=== PATIENT | female | born 1930 | race Caucasian/White ===

== ENCOUNTER 2017-03-31 11:41 | Emergency (ER) | payer MEDICARE ==
[~2017-03-31] VITALS: Ht 167.6 cm; Wt 68.0 kg
[~2017-03-31 11:41] MED LIST: ACET325T12 PO; ALPR0.254 PO; ASPI1CPM PO; Bupropion Hcl PO; DOCU-24 PO; DONE5TAB31 PO; ESCI10TA PO; HALO5TAB PO; HYDR25TA PO; LEVO50TA6 PO; LISI-414 PO; MINE25OI TP
--- NOTE | 2017-03-31 11:41 | NUR ---
ARRIVAL PT ARRIVED VIA EMS. REPORT RECEIVED FROM EMS. PT ALERT ORIENTED TO PERSON, PLACE, DISORIENTED TO TIME. CONFUSED ON CONDITION FOR BEING IN ER AND MEDICAL CONDITIONS. ANSWERS QUESTIONS APPROPRIATELY AND PLEASANTLY. TRIAGE DONE.
--- NOTE | 2017-03-31 12:03 | NUR ---
DAUGHTER DAUGHTER CALLED TO CHECK ON STATUS OF PT, ASKED PT FOR HER PERMISSION TO GIVE DAUGHTER INFO AND PT STATED YES I COULD GIVE HER INFORMATION. SPOKE TO DAUGHTER WHO STATED SHE HAS ALZHEIMERS AND GET CONFUSED EASILY, DAUGHTER STATES THAT THE [facility] STAFF STATED TO HER THAT SHE TOLD THEM THAT SHE COULD NOT STAND UP OR RAISE HER ARMS SO THEY CALLED EMS. REPORTED TO DOCTOR.
--- NOTE | 2017-03-31 12:07 | NUR ---
STATUS PT IS ABLE TO LIFT BOTH ARMS ABOVE HEAD.
--- NOTE | 2017-03-31 12:29 | ER.PDOC ---
General Chief Complaint: General Complaint Stated Complaint: WEAKNESS TRAVEL OUT OF US: No Time seen by MD: 12:27 Source: patient, EMS Exam Limitations: clinical condition History of Present Illness Timing/Duration: 4-6 hours Severity: moderate Associated Symptoms: weakness Allergies: Coded Allergies: Sulfa (Sulfonamide Antibiotics) (Verified Allergy, Unknown, 04/10/16) Uncoded Allergies: HEPRIN (Allergy, Unknown, UNKNOWN, 07/22/15) Home Meds Active Scripts Hydroxyzine Hcl (HYDROXYZINE HCL) 25 Mg Tablet, 25 MG PO Q6HR Y for ITCHING for 30 Days, TABLET Prov:IDALIA GRIDER IV, MD 04/19/16 [Bupropion Hcl] 150 MG TAB.ER.24H No Conflict Check, 150 MG PO DAILY for 30 Days Prov:IDALIA GRIDER IV, MD 04/19/16 Alprazolam (ALPRAZOLAM) 0.25 Mg Tablet, 0.25 MG PO BID Y for ANXIETY for 30 Days , TABLET Prov:IDALIA GRIDER IV, MD 04/19/16 Docusate Sodium (COLACE) 100 Mg Capsule, 100 MG PO BID Y for constipation for 30 Days, CAPSULE Prov:IDALIA GRIDER IV, MD 04/14/16 Haloperidol (HALOPERIDOL) 5 Mg Tablet, 1 MG PO Q4HR Y for AGITATION for 30 Days , TABLET Prov:IDALIA GRIDER IV, MD 04/14/16 Acetaminophen (TYLENOL) 325 Mg Tablet, 650 MG PO PRN Y for HEADACHE for 30 Days , TABLET Prov:IDALIA GRIDER IV, MD 04/14/16 Lisinopril (LISINOPRIL) 5 Mg Tablet, 5 MG PO DAILY for 30 Days, TABLET Prov:IDALIA GRIDER IV, MD 04/14/16 Donepezil Hcl (ARICEPT) 5 Mg Tablet, 5 MG PO HS for 30 Days, TABLET Prov:IDALIA GRIDER IV, MD 04/14/16 Reported Medications Mineral Oil (MINERAL OIL) 25 Ml Oil, 1 TSP TP HS 04/10/16 Escitalopram Oxalate (ESCITALOPRAM OXALATE) 10 Mg Tablet, 10 MG PO DAILY, TABLET 04/10/16 Aspirin/Dipyridamole (AGGRENOX 25 MG-200 MG CAPSULE) 1 Each Cpmp.12hr, 1 EACH PO BID 04/10/16 Levothyroxine Sodium (LEVOTHYROXINE SODIUM) 50 Mcg Tablet, 50 MCG PO DAILY, TABLET 04/10/16 Past Medical History Medical History: hypertension Surgical History: tubal LMP (females 10-50): postmenopause Social History Smoking: non-smoker Alcohol Use: none Drug Use: none Reviewed Nursing Reviewed: Vital Signs, Abn. Noted, Nursing Assessment Review of Systems Psychiatric/Neurological: see HPI, weakness All Other Systems: Reviewed and Negative Physical Exam General Appearance: Moderate Distress EENT: eyes nml inspection Neck: Non-Tender Respiratory: chest non-tender CVS: reg rate & rhythm Gastrointestinal: Normal Bowel Sounds Rectal: Deferred Back: Normal Inspection Extremities: Normal Range of Motion Neurologic/Psychiatric: Motor Weakness, Depressed Affect Skin: Normal Color Lymphatic: No Adenopathy Results/Orders Results/Orders Laboratory Tests Test 03/31/17 12:32 White Blood Count 7.4 10^3/uL (4.5-11.0) Red Blood Count 4.17 10^6/uL (4.00-5.20) Hemoglobin 11.9 g/dL (12.0-15.0) Hematocrit 36.9 % (36.0-46.0) Mean Corpuscular Volume 88.5 fL (78-100) Mean Corpuscular Hemoglobin 28.5 pg (26-34) Mean Corpuscular Hemoglobin Concent 32.2 g/dL (33-37) Red Cell Distribution Width 14.0 % (11.5-14.5) Platelet Count 305 10^3/uL (150-400) Mean Platelet Volume 10.5 fL (7.8-11.0) Neutrophils (%) (Auto) 59.0 % (41.0-85.0) Lymphocytes (%) (Auto) 20.1 % (24.0-44.0) Monocytes (%) (Auto) 10.0 % (5.0-12.0) Neutrophils # (Auto) 4.4 10^3/uL (1.8-7.7) Lymphocytes # (Auto) 1.5 10^3/uL (1.0-4.8) Monocytes # (Auto) 0.7 10^3/uL (0.3-0.8) Absolute Immature Granulocyte (auto 0.01 10^3 u/L (0-2) Eosinophils % 9.6 % (0.0-5.0) Basophils % 1.2 % (0.0-0.2) Basophils # 0.1 10^3/uL (0.0-0.1) Eosinophil Count 0.7 10^3/uL (0.0-0.2) Prothrombin Time 10.4 SEC (9.8-11.9) Prothrombin Time INR (Non-Therap) 1.0 D-Dimer 0.66 mg/L (0.19-0.41) Sodium Level 136 mmol/L (132-145) Potassium Level 4.3 mmol/L (3.6-5.2) Chloride Level 103.0 mmol/L (96-109) Carbon Dioxide Level 23.5 mmol/L (20.0-32) Anion Gap 13.8 Blood Urea Nitrogen 15 mg/dL (7-18) Creatinine 1.14 mg/dL (0.59-1.40) Estimated GFR () 54.4 (>/=60) BUN/Creatinine Ratio 13.0 Glucose Level 105 mg/dL (70-110) Calcium Level 9.1 mg/dL (8.4-10.5) Total Bilirubin 0.4 mg/dL (0.2-1.0) Aspartate Amino Transf (AST/SGOT) 16 U/L (0-35) Alanine Aminotransferase (ALT/SGPT) 14 U/L (12-78) Alkaline Phosphatase 65 U/L (50-136) Total Creatine Kinase 40 U/L (26-192) Creatine Kinase MB 0.5 ng/mL (0.5-3.6) Troponin I < 0.02 ng/mL (0.00-0.05) Pro-B-Type Natriuretic Peptide 119 pg/mL (0-450) Total Protein 7.1 g/dL (6.4-8.2) Albumin 3.2 g/dL (3.4-5.0) Globulin 3.9 Percent Immature Gran (Cell Imm) 0.10 % (0.00-0.50) Progress Progress Patient resting comfortably. She is mildly bradycardic and has fatigue. She will be discharged and return to the [facility]. CXR and Head CT Scan are negative for any acute findings. EKG/XRAY/CT/US EKG Comments: Sinus Bradycardia, HR 53, 1st degree AV Block. XRAY: chest XRAY Comments: Negative CT Comments: Head: Negative Departure Time of Disposition: 13:42 Disposition: 01 HOME, SELF-CARE Impression: Primary Impression: Fatigue Qualified Codes: R53.82 - Chronic fatigue, unspecified Additional Impression: Bradycardia Condition: Stable Referrals: SHERMAN KEMP MD (PCP) PRIMARY CARE PROVIDER MIKEY OSORIO MD Mar 31, 2017 12:29
[2017-03-31 12:48] LABS: BASOPHIL # 0.1 10^3/uL (0.0-0.1); BASOPHIL % 1.2 % (0.0-0.2); EOSINOPHIL # 0.7 10^3/uL (0.0-0.2); EOSINOPHIL % 9.6 % (0.0-5.0); HEMOGLOBIN 11.9 g/dL (12.0-15.0); LYMPHOCYTES # 1.5 10^3/uL (1.0-4.8); LYMPHOCYTES % 20.1 % (24.0-44.0); MEAN CELL HGB 28.5 pg (26-34); MEAN CELL HGB CONCENTRATION 32.2 g/dL (33-37); MEAN CORP VOLUME 88.5 fL (78-100); MEAN PLATELET VOLUME 10.5 fL (7.8-11.0); MONOCYTES # 0.7 10^3/uL (0.3-0.8); NEUTROPHIL # 4.4 10^3/uL (1.8-7.7); WHITE BLOOD CELL 7.4 10^3/uL (4.5-11.0)
[2017-03-31 13:11] LABS: ALANINE AMINOTRANSFERASE 14 U/L (12-78); ALKALINE PHOSPHATASE 65 U/L (50-136); ASPARTATE AMINO TRANSFERASE 16 U/L (0-35); CALCIUM 9.1 mg/dL (8.4-10.5); CARBON DIOXIDE 23.5 mmol/L (20.0-32); GLUCOSE 105 mg/dL (70-110)
--- NOTE | 2017-03-31 13:25 | DIREP ---
PROCEDURE:CT HEAD OR BRAIN W/O CONTRAST COMPARISON:[facility] [place], CT, CT HEAD BRAIN W/O CONTRAST, 04/11/2016, 01:05 PM. INDICATIONS:stroke/weakness TECHNIQUE:CT images were created without intravenous contrast. FINDINGS: VENTRICLES:The ventricles are normal in size and configuration. CEREBRUM:Encephalomalacia related to previous left frontoparietal ischemic injury unchanged. CEREBELLUM:Negative. BRAINSTEM:Negative. BASAL CISTERNS:Sampson cisterna magna which is a normal variant.. HEMORRHAGE:No MASS LESION:No ACUTE INFARCT:No SKULL:Normal. SINUSES:Normal. OTHER:Vertebrobasilar and carotid siphon calcifications. CONCLUSION: 1. No acute intracranial abnormality. 2. Remote ischemic injury left frontal and to a lesser extent parietal lobes with encephalomalacia unchanged. 3. Extensive vertebrobasilar and carotid atherosclerotic calcifications. Dictated by: Augusto Hermosillo M.D. on 03/31/2017 at 01:21 PM
--- NOTE | 2017-03-31 13:26 | DIREP ---
PROCEDURE:CHEST 1 VIEW COMPARISON:[facility], CR, XRAY CHEST SINGLE VW, 07/30/2016, 05:52 PM. INDICATIONS:syncope/weakness FINDINGS: LUNGS/PLEURA:No significant pulmonary parenchymal abnormalities. No effusions. VASCULATURE:Normal. Unremarkable pulmonary vasculature. CARDIAC:Normal. No cardiac silhouette abnormality or cardiomegaly. MEDIASTINUM:Normal. No visible mass or adenopathy. BONES:Normal. No fracture or visible bony lesion. OTHER:EKG leads overlie the chest. CONCLUSION:No active cardiopulmonary process demonstrated. Dictated by: Augusto Hermosillo M.D. on 03/31/2017 at 01:24 PM
[2017-03-31 14:31] VITALS: BP 151/60
== END 2017-03-31 14:05 | disposition home or self-care (01) ==
LOC: EDBD 11:41 → ER 11:41
DX: R53.1 Weakness (principal); R00.1 Bradycardia, unspecified; I10 Essential (primary) hypertension; Z79.82 Long term (current) use of aspirin; F32.9 Major depressive disorder, single episode, unspecified
CPT/HCPCS: 36415; 70450; 71010; 80053; 82550; 82553; 83880; 84484; 85025; 85379; 85610; 93005; 99285

== ENCOUNTER 2017-06-18 06:15 | Inpatient (IN) | payer MEDICARE ==
[~2017-06-18] VITALS: Ht 160 cm; Wt 53.2 kg
[~2017-06-18 06:15] MED LIST changes: +DOCU-123 PO; -DOCU-24 PO; -DONE5TAB31 PO; +DONE5TAB53 PO
--- NOTE | 2017-06-18 06:26 | ER.PDOC ---
BEATRIZ JIMENEZ MD 06/18/17 0626: General Chief Complaint: Requesting Medical Care Stated Complaint: FALL HEAD INJURY Time seen by MD: 06:15 Source: EMS Exam Limitations: other (dementia) History of Present Illness Initial Comments pt reportedly fell and injured her head. unreliable H and P and ROS due to dementia Occurred: this morning, other (at [facility] [place]) Allergies: Coded Allergies: Sulfa (Sulfonamide Antibiotics) (Verified Allergy, Unknown, 04/10/16) Uncoded Allergies: HEPRIN (Allergy, Unknown, UNKNOWN, 07/22/15) MEDS Active Scripts Hydroxyzine Hcl (HYDROXYZINE HCL) 25 Mg Tablet, 25 MG PO Q6HR Y for ITCHING for 30 Days, TABLET Prov:IDALIA GRIDER IV, MD 04/19/16 [Bupropion Hcl] 150 MG TAB.ER.24H No Conflict Check, 150 MG PO DAILY for 30 Days Prov:IDALIA GRIDER IV, MD 04/19/16 Alprazolam (ALPRAZOLAM) 0.25 Mg Tablet, 0.25 MG PO BID Y for ANXIETY for 30 Days , TABLET Prov:IADLIA GRIDER IV, MD 04/19/16 Docusate Sodium (COLACE) 100 Mg Capsule, 100 MG PO BID Y for constipation for 30 Days, CAPSULE Prov:IDALIA GRIDER IV, MD 04/14/16 Haloperidol (HALOPERIDOL) 5 Mg Tablet, 1 MG PO Q4HR Y for AGITATION for 30 Days , TABLET Prov:IDALIA GRIDER IV, MD 04/14/16 Acetaminophen (TYLENOL) 325 Mg Tablet, 650 MG PO PRN Y for HEADACHE for 30 Days , TABLET Prov:IDALIA GRIDER IV, MD 04/14/16 Lisinopril (LISINOPRIL) 5 Mg Tablet, 5 MG PO DAILY for 30 Days, TABLET Prov:IDALIA GRIDER IV, MD 04/14/16 Donepezil Hcl (ARICEPT) 5 Mg Tablet, 5 MG PO HS for 30 Days, TABLET Prov:IDALIA GRIDER IV, MD 04/14/16 Reported Medications Mineral Oil (MINERAL OIL) 25 Ml Oil, 1 TSP TP HS 04/10/16 Escitalopram Oxalate (ESCITALOPRAM OXALATE) 10 Mg Tablet, 10 MG PO DAILY, TABLET 04/10/16 Aspirin/Dipyridamole (AGGRENOX 25 MG-200 MG CAPSULE) 1 Each Cpmp.12hr, 1 EACH PO BID 04/10/16 Levothyroxine Sodium (LEVOTHYROXINE SODIUM) 50 Mcg Tablet, 50 MCG PO DAILY, TABLET 04/10/16 Past Medical History Medical History: hypertension, other (dementia) Surgical History: tubal Family History Significant Family History: no pertinent family hx Social History Drug Use: none Review of Systems Constitutional: other (unreliable) Physical Exam General Appearance: No Apparent Distress, WD/WN, C-collar Head: Ecchymosis Eyes: bilateral eye normal inspection, bilateral eye PERRL, bilateral eye EOMI Ears, Nose, Mouth, Throat: Hearing Grossly Normal, No Evidence of ENT Injury, No Dental Injury Neck: Normal Alignment 1 - ecchymosis Cardiovascular/Respiratory: Regular Rate, Rhythm Gastrointestinal: Normal Bowel Sounds Back: Normal Inspection Extremities: Normal Range of Motion, Non-Tender, No Pedal Edema, Other (no deformity) Skin: Other (ecchymosis) Haider Coma Score Best Eye Response: (4) Open Spontaneously Best Verbal Response: (4) Confused Conversation Best Motor Response: (6) Obeys Commands Results/Orders Results/Orders Laboratory Tests Test 06/18/17 06:35 06/18/17 06:48 White Blood Count 13.1 10^3/uL (4.5-11.0) Red Blood Count 3.97 10^6/uL (4.00-5.20) Hemoglobin 10.9 g/dL (12.0-15.0) Hematocrit 35.0 % (36.0-46.0) Mean Corpuscular Volume 88.2 fL (78-100) Mean Corpuscular Hemoglobin 27.5 pg (26-34) Mean Corpuscular Hemoglobin Concent 31.1 g/dL (33-37) Red Cell Distribution Width 13.9 % (11.5-14.5) Platelet Count 296 10^3/uL (150-400) Mean Platelet Volume 10.3 fL (7.8-11.0) Neutrophils (%) (Auto) 81.8 % (41.0-85.0) Lymphocytes (%) (Auto) 7.8 % (24.0-44.0) Monocytes (%) (Auto) 7.4 % (5.0-12.0) Neutrophils # (Auto) 10.8 10^3/uL (1.8-7.7) Lymphocytes # (Auto) 1.0 10^3/uL (1.0-4.8) Monocytes # (Auto) 1.0 10^3/uL (0.3-0.8) Absolute Immature Granulocyte (auto 0.03 10^3 u/L (0-2) Eosinophils % 2.6 % (0.0-5.0) Basophils % 0.2 % (0.0-0.2) Basophils # 0.0 10^3/uL (0.0-0.1) Eosinophil Count 0.3 10^3/uL (0.0-0.2) Sodium Level 136 mmol/L (132-145) Potassium Level 4.4 mmol/L (3.6-5.2) Chloride Level 103.0 mmol/L (96-109) Carbon Dioxide Level 24.2 mmol/L (20.0-32) Anion Gap 13.2 Blood Urea Nitrogen 18 mg/dL (7-18) Creatinine 1.20 mg/dL (0.59-1.40) Estimated GFR () 51.2 (>/=60) BUN/Creatinine Ratio 15.0 Glucose Level 123 mg/dL (70-110) Calcium Level 8.8 mg/dL (8.4-10.5) Total Bilirubin 0.4 mg/dL (0.2-1.0) Aspartate Amino Transf (AST/SGOT) 18 U/L (0-35) Alanine Aminotransferase (ALT/SGPT) 15 U/L (12-78) Alkaline Phosphatase 61 U/L (50-136) Total Protein 6.9 g/dL (6.4-8.2) Albumin 3.2 g/dL (3.4-5.0) Globulin 3.7 Percent Immature Gran (Cell Imm) 0.20 % (0.00-0.50) Urine Collection Type CATH Urine Color YELLOW (YELLOW) Urine Appearance CLOUDY (CLEAR) Urine Bilirubin NEGATIVE MG/DL (NEGATIVE) Urine Ketones NEGATIVE (NEGATIVE) Urine Specific [place] 1.020 (1.005-1.035) Urine pH 6 (5.0-6.0) Urine Protein NEGATIVE (NEGATIVE) Urine Urobilinogen NORMAL (NEGATIVE) Urine Nitrate POSITIVE (NEGATIVE) Urine Leukocyte Esterase 500/uL 2+ (NEGATIVE) Urine Blood 50 2+ (NEGATIVE) Urine RBC NONE SEEN RBC/HPF (NONE Urine WBC TNTC WBC/HPF (0-2) Urine Squamous Epithelial Cells RARE #/HPF (FEW) Urine Bacteria FEW (NONE SEEN) Urine Other 2+ MUCUS #/HPF Urine Glucose NORMAL (NEGATIVE) Progress Progress checked out pt to Dr. Lagunas at 0700 Departure Disposition: 09 ADMITTED INPATIENT Impression: Primary Impression: Altered mental status Qualified Codes: R41.82 - Altered mental status, unspecified Additional Impressions: UTI (urinary tract infection) Qualified Codes: N39.0 - Urinary tract infection, site not specified; R31.9 - Hematuria, unspecified Head injury, acute Qualified Codes: S09.90XA - Unspecified injury of head, initial encounter Fall Qualified Codes: W19.XXXA - Unspecified fall, initial encounter Condition: Stable Referrals: SHERMAN KEMP MD (PCP) PRIMARY CARE PROVIDER LEXI LAGUNAS MD 06/18/17 0904: General Chief Complaint: Requesting Medical Care Stated Complaint: FALL HEAD INJURY History of Present Illness Allergies: Coded Allergies: Sulfa (Sulfonamide Antibiotics) (Verified Allergy, Unknown, 04/10/16) Uncoded Allergies: HEPRIN (Allergy, Unknown, UNKNOWN, 07/22/15) MEDS Active Scripts Hydroxyzine Hcl (HYDROXYZINE HCL) 25 Mg Tablet, 25 MG PO Q6HR Y for ITCHING for 30 Days, TABLET Prov:IDALIA GRIDER IV, MD 04/19/16 [Bupropion Hcl] 150 MG TAB.ER.24H No Conflict Check, 150 MG PO DAILY for 30 Days Prov:IDALIA GRIDER IV, MD 04/19/16 Alprazolam (ALPRAZOLAM) 0.25 Mg Tablet, 0.25 MG PO BID Y for ANXIETY for 30 Days , TABLET Prov:IDALIA GRIDER IV, MD 04/19/16 Docusate Sodium (COLACE) 100 Mg Capsule, 100 MG PO BID Y for constipation for 30 Days, CAPSULE Prov:IDALIA GRIDER IV, MD 04/14/16 Haloperidol (HALOPERIDOL) 5 Mg Tablet, 1 MG PO Q4HR Y for AGITATION for 30 Days , TABLET Prov:IDALIA GRIDER IV, MD 04/14/16 Acetaminophen (TYLENOL) 325 Mg Tablet, 650 MG PO PRN Y for HEADACHE for 30 Days , TABLET Prov:IDALIA RGIDER IV, MD 04/14/16 Lisinopril (LISINOPRIL) 5 Mg Tablet, 5 MG PO DAILY for 30 Days, TABLET Prov:IDALIA GRIDER IV, MD 04/14/16 Donepezil Hcl (ARICEPT) 5 Mg Tablet, 5 MG PO HS for 30 Days, TABLET Prov:IDALIA GRIDER IV, MD 04/14/16 Reported Medications Mineral Oil (MINERAL OIL) 25 Ml Oil, 1 TSP TP HS 04/10/16 Escitalopram Oxalate (ESCITALOPRAM OXALATE) 10 Mg Tablet, 10 MG PO DAILY, TABLET 04/10/16 Aspirin/Dipyridamole (AGGRENOX 25 MG-200 MG CAPSULE) 1 Each Cpmp.12hr, 1 EACH PO BID 04/10/16 Levothyroxine Sodium (LEVOTHYROXINE SODIUM) 50 Mcg Tablet, 50 MCG PO DAILY, TABLET 04/10/16 Physical Exam Head: Swelling (Swelling right frontal scalp) Extremities: Tenderness (right shoulder with ecchymosis) Results/Orders Results/Orders Laboratory Tests Test 06/18/17 06:35 06/18/17 06:48 White Blood Count 13.1 10^3/uL (4.5-11.0) Red Blood Count 3.97 10^6/uL (4.00-5.20) Hemoglobin 10.9 g/dL (12.0-15.0) Hematocrit 35.0 % (36.0-46.0) Mean Corpuscular Volume 88.2 fL (78-100) Mean Corpuscular Hemoglobin 27.5 pg (26-34) Mean Corpuscular Hemoglobin Concent 31.1 g/dL (33-37) Red Cell Distribution Width 13.9 % (11.5-14.5) Platelet Count 296 10^3/uL (150-400) Mean Platelet Volume 10.3 fL (7.8-11.0) Neutrophils (%) (Auto) 81.8 % (41.0-85.0) Lymphocytes (%) (Auto) 7.8 % (24.0-44.0) Monocytes (%) (Auto) 7.4 % (5.0-12.0) Neutrophils # (Auto) 10.8 10^3/uL (1.8-7.7) Lymphocytes # (Auto) 1.0 10^3/uL (1.0-4.8) Monocytes # (Auto) 1.0 10^3/uL (0.3-0.8) Absolute Immature Granulocyte (auto 0.03 10^3 u/L (0-2) Eosinophils % 2.6 % (0.0-5.0) Basophils % 0.2 % (0.0-0.2) Basophils # 0.0 10^3/uL (0.0-0.1) Eosinophil Count 0.3 10^3/uL (0.0-0.2) Sodium Level 136 mmol/L (132-145) Potassium Level 4.4 mmol/L (3.6-5.2) Chloride Level 103.0 mmol/L (96-109) Carbon Dioxide Level 24.2 mmol/L (20.0-32) Anion Gap 13.2 Blood Urea Nitrogen 18 mg/dL (7-18) Creatinine 1.20 mg/dL (0.59-1.40) Estimated GFR () 51.2 (>/=60) BUN/Creatinine Ratio 15.0 Glucose Level 123 mg/dL (70-110) Calcium Level 8.8 mg/dL (8.4-10.5) Total Bilirubin 0.4 mg/dL (0.2-1.0) Aspartate Amino Transf (AST/SGOT) 18 U/L (0-35) Alanine Aminotransferase (ALT/SGPT) 15 U/L (12-78) Alkaline Phosphatase 61 U/L (50-136) Total Creatine Kinase 60 U/L (26-192) Creatine Kinase MB 1.0 ng/mL (0.5-3.6) Troponin I < 0.02 ng/mL (0.00-0.05) Pro-B-Type Natriuretic Peptide 355 pg/mL (0-450) Total Protein 6.9 g/dL (6.4-8.2) Albumin 3.2 g/dL (3.4-5.0) Globulin 3.7 Percent Immature Gran (Cell Imm) 0.20 % (0.00-0.50) Urine Collection Type CATH Urine Color YELLOW (YELLOW) Urine Appearance CLOUDY (CLEAR) Urine Bilirubin NEGATIVE MG/DL (NEGATIVE) Urine Ketones NEGATIVE (NEGATIVE) Urine Specific [place] 1.020 (1.005-1.035) Urine pH 6 (5.0-6.0) Urine Protein NEGATIVE (NEGATIVE) Urine Urobilinogen NORMAL (NEGATIVE) Urine Nitrate POSITIVE (NEGATIVE) Urine Leukocyte Esterase 500/uL 2+ (NEGATIVE) Urine Blood 50 2+ (NEGATIVE) Urine RBC NONE SEEN RBC/HPF (NONE Urine WBC TNTC WBC/HPF (0-2) Urine Squamous Epithelial Cells RARE #/HPF (FEW) Urine Bacteria FEW (NONE SEEN) Urine Other 2+ MUCUS #/HPF Urine Glucose NORMAL (NEGATIVE) EKG/XRAY/CT/US XRAY: chest (No active disease) CT Comments: Nothing acute intracranially and on CT C spine Departure Time of Disposition: 09:03 Disposition: 09 ADMITTED INPATIENT Impression: Primary Impression: Altered mental status Qualified Codes: R41.82 - Altered mental status, unspecified Additional Impressions: UTI (urinary tract infection) Qualified Codes: N39.0 - Urinary tract infection, site not specified; R31.9 - Hematuria, unspecified Head injury, acute Qualified Codes: S09.90XA - Unspecified injury of head, initial encounter Fall Qualified Codes: W19.XXXA - Unspecified fall, initial encounter Condition: Stable Referrals: SHERMAN KEMP MD (PCP) PRIMARY CARE PROVIDER Comments Admitted to BEATRIZ Parker MD Jun 18, 2017 06:26 LEXI LAGUNAS MD Jun 18, 2017 09:04
--- NOTE | 2017-06-18 06:30 | NUR ---
REPORT RECEIVED REPORT, ASSUMED CARE OF PT. PT LYING IN BED WITH C-COLLAR IN PLACE, ANSWERING QUESTIONS APPROPRIATLY, EYES CLOSED BUT TALKING AND AWAKE. PT HAS BRUISING AND BUMP TO RIGHT SIDE OF FOREHEAD. DENIES PAIN OR NEEDS @ THIS TIME.
--- NOTE | 2017-06-18 06:34 | PCM.EKG ---
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
[2017-06-18 06:42] LABS: BASOPHIL % 0.2 % (0.0-0.2); EOSINOPHIL # 0.3 10^3/uL (0.0-0.2); EOSINOPHIL % 2.6 % (0.0-5.0); HEMOGLOBIN 10.9 g/dL (12.0-15.0); LYMPHOCYTES % 7.8 % (24.0-44.0); MEAN CELL HGB 27.5 pg (26-34); MEAN CELL HGB CONCENTRATION 31.1 g/dL (33-37); MEAN CORP VOLUME 88.2 fL (78-100); MEAN PLATELET VOLUME 10.3 fL (7.8-11.0); MONOCYTES % 7.4 % (5.0-12.0); NEUTROPHIL # 10.8 10^3/uL (1.8-7.7); NEUTROPHILS % 81.8 % (41.0-85.0); RED CELL DISTRIBUTION WIDTH 13.9 % (11.5-14.5); WHITE BLOOD CELL 13.1 10^3/uL (4.5-11.0)
[2017-06-18 06:50] LABS: BILIRUBIN,URINE NEGATIVE (NEGATIVE); UROBILINOGEN,URINE NORMAL (NEGATIVE)
[2017-06-18 06:59] LABS: APPEARANCE,URINE CLOUDY (CLEAR); UA COLOR YELLOW (YELLOW); WBC,URINE TNTC WBC/HPF (0-2)
[2017-06-18 07:01] LABS: CALCIUM 8.8 mg/dL (8.4-10.5); CARBON DIOXIDE 24.2 mmol/L (20.0-32)
[2017-06-18] MEDS ORDERED: ZOFRAN ONE (07:10)
[2017-06-18] MEDS ORDERED: ZOFRAN ODT ONE (07:23)
--- NOTE | 2017-06-18 07:35 | DIREP ---
PROCEDURE:CT HEAD OR BRAIN W/O CONTRAST COMPARISON:[facility] [place], CT, CT SPINE CERVICAL W/O, 06/18/2017, 07:01 AM. [facility] [place], CT, CT HEAD BRAIN W/O CONTRAST, 03/31/2017, 12:48 PM. INDICATIONS:fall, head injury TECHNIQUE:Axial CT images were obtained from vertex to the skull base without the administration of IV contrast. FINDINGS: VENTRICLES: Commensurate with stable mild cerebral volume loss. No hydrocephalus. CEREBRUM: Stable mild, age-related, volume loss. Stable remote infarctions in the left frontal and parietal lobes. Stable mild chronic small vessel white matter ischemic changes. Stable small remote lacunar infarction in the right caudate body. No intracranial hemorrhage, mass-effect, or midline shift. No CT evidence of acute infarction. CEREBELLUM: Stable mild, age-related, volume loss. Stable small remote lacunar infarction in the right cerebellar hemisphere. Otherwise unremarkable. BRAINSTEM: Normal. BASAL CISTERNS: Normal. SKULL: Normal. No fracture. SINUSES: Stable postoperative changes of prior right maxillary antrostomy and posterior ethmoid air cell resection. Visualized paranasal sinuses and mastoid air cells are clear. OTHER: Mild to moderate soft tissue swelling involving the right frontal scalp and right supraorbital region. Stable calcified plaque in the carotid siphons and vertebral arteries. CONCLUSION: 1. No acute intracranial abnormality. 2. 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 3. Stable mild chronic small vessel white matter ischemic changes with small remote lacunar infarctions in the right caudate body and right cerebellar hemisphere. 4. Valn-ur-keoaarxv soft tissue swelling involving the right frontal scalp and right supraorbital region. Dictated by: Jacky Barragan M.D. On 06/18/2017 at 07:30 AM
--- NOTE | 2017-06-18 07:39 | DIREP ---
PROCEDURE:CT CERVICAL SPINE WITHOUT CONTRAST TECHNIQUE:Axial cuts were obtained through the cervical spine. The images were viewed at bone and soft tissue settings. Sagittal and coronal reconstructions are provided. COMPARISON:[facility], CT, CT HEAD BRAIN W/O CONTRAST, 06/18/2017, 06:52 AM. INDICATIONS:fall, injury FINDINGS: ALIGNMENT: Slight reversal of the normal cervical lordosis, likely secondary to positioning or muscle spasm. No acute subluxation. A cervical collar is in place. VERTEBRAE/DISCS: No fracture or compression abnormality. Luog-eo-yerqdtti disc and facet degenerative changes, most prominent at C5-6 and C6-7. No significant bony central canal stenosis. PARASPINAL AREA: Normal. No prevertebral soft tissue swelling. OTHER: Postoperative changes of left carotid endarterectomy. Dense calcified plaque in the right carotid bulb. Mild biapical pleuroparenchymal scarring. CONCLUSION: 1. No acute abnormality involving the cervical spine. 2. Kaiy-mh-cwpxfsnj disc and facet degenerative changes, most prominent at C5-6 and C6-7. 3. Additional chronic and postoperative findings, as above. Dictated by: Jacky Barragan M.D. On 06/18/2017 at 07:35 AM
[2017-06-18] MEDS ORDERED: LEVAQUIN 100 ML IV STA (07:50)
[2017-06-18] MEDS ORDERED: NS 1000ML 1,000 ML IV STA (07:50)
--- NOTE | 2017-06-18 08:36 | DIREP ---
PROCEDURE:XRAY SHOULDER MIN 2 VWS-RT COMPARISON:None. INDICATIONS:pain from falling FINDINGS: BONES:No acute fracture. JOINTS:Intact glenohumeral and acromioclavicular joints. No evidence for dislocation. No significant degenerative joint disease; however, there does appear to be subtle spurring from the undersurface of the acromion. SOFT TISSUES:No suspicious abnormality. CONCLUSION: 1. No acute osseous abnormality or significant degenerative joint disease. Dictated by: Jacky Del Angel M.D. On 06/18/2017 at 08:33 AM
--- NOTE | 2017-06-18 08:39 | DIREP ---
PROCEDURE:CHEST 1 VIEW COMPARISON:[facility], CR, XRAY CHEST SINGLE VW, 03/31/2017, 12:55 PM. INDICATIONS:AMS FINDINGS: LUNGS/PLEURA:No significant pulmonary parenchymal abnormalities. No effusions. VASCULATURE:Normal. Unremarkable pulmonary vasculature. CARDIAC:Normal. No cardiac silhouette abnormality or cardiomegaly. MEDIASTINUM:Stable mediastinal contours with calcifications of the aorta. BONES:Dextro convex curvature of the thoracic spine with mild degenerative changes. Apparent subacromial spurring bilaterally. OTHER:Surgical clips within the soft tissues of the imaged left neck. CONCLUSION: 1. Stable chest without acute cardiopulmonary abnormality. Dictated by: Jacky Del Angel M.D. On 06/18/2017 at 08:35 AM
--- NOTE | 2017-06-18 08:41 | NUR ---
Dr. Bean Hampton Mba on phone with Dr. Del Angel
[2017-06-18] MEDS ORDERED: LEVAQUIN 100 ML IV ONE (08:43)
[2017-06-18] MEDS ORDERED: NS 1000ML 1,000 ML ONE (08:43)
--- NOTE | 2017-06-18 09:05 | PRM.ACF1 ---
Date and Time Date and Time Time: 09:05 Admission Criteria Forms ACUTE LOSS OF CONSCIOUSNESS- ALOC Clinical Indications for Inpatient Care (Place 'X' for any and all applicable criteria): Ongoing inpatient care may be needed for ANY ONE of the following(1)(2)(3)(5)(6) : [ x]I. Suspected serious etiology (eg, medical disorder, [employer] event) of mental status change [ ]II. Danger to self or others not manageable at lower level of care [ ]III. Grave disability (eg, inability to perform self care necessary at lower level of care) [ ]IV. Agitation or inappropriate behavior interfering with care for primary condition (eg, attempting to discontinue lines or drains prematurely, unable to cooperate with respiratory care) [ ]V. Delirium [A] [D][E] as described by ANY ONE of the following(26): [ ]a) Delirium due to alcohol or sedative [F] withdrawal [ ]b) Delirium of uncertain etiology that has not responded to appropriate empiric treatment [ ]c) Delirium that prevents performance of a life-sustaining function (eg, feeding or hydrating oneself) [ ]. General contraindications and/or Inappropriate clinical situations for Observational Care in patients with Acute Loss of Consciousness, when ANY ONE of the following is required: [ ]a) Prediction of prolongation of LOS based on ANY ONE of the following may be considered as a contraindication for observational care 2, 3, 4, 5, 6, 7, 8 , 9, 10, 11 [ ]i) Age > 65 yrs. [ ]ii) Patient arriving by ambulance [ ]iii) Patient with high acuity [ ]iv) Patient requiring vital sign monitoring [ ]v) Patient on IV medication [ ]b) Systolic blood pressures 180mmHg 3,12 [ ]c) Patient with altered mental status including delirium and other alteration of consciousness, (3) [ ]d) Patient whose discharge disposition will be to a residential home or rehabilitation home should not be managed in Emergency Department Observation Unit. CMS rule requires 3 days hospital stay before such placement.3,13 [ ]e) Patient with failure to thrive due to broad array of etiologies 3,16,17 [ ]f) Inability to ambulate 3,14 Extended stay beyond goal length of stay for the primary condition may be needed until ALL of the following are present(3)(5): [ ]a) Underlying medical etiology of mental status change is absent, or has been established and adequately treated [ ]b) Danger to self or others is absent or manageable at lower level of care. [ ]c) Behavior crisis management, including physical or chemical restraints, is not required or available at lower level of car [ ]d) Substance or alcohol withdrawal is absent or manageable at lower level of care. [ ]e) Behavioral symptoms (eg, agitation, somnolence, inappropriate behavior) are absent, or are manageable at lower level of care. The original [facility] [employer] content created by [facility] [employer] has been revised. The portions of the content which have been revised are identified through the use of italic text or in bold, and [facility] [employer] has neither reviewed nor approved the modified material. All other unmodified content is copyright [facility] [employer]. Please see references footnoted in the original [facility] [employer] edition 2016 LEXI LAGUNAS MD Jun 18, 2017 09:05
[2017-06-18 11:40] VITALS: BP 139/72
[2017-06-18 17:00] VITALS: BP 124/74
--- NOTE | 2017-06-18 17:00 | NUR ---
Dr. Bean Del Angel at bedside
[2017-06-18] MEDS ORDERED: DONE10TA57 PO (17:35)
[2017-06-18] MEDS ORDERED: HALDOL PO PRN (18:00)
[2017-06-18] MEDS ORDERED: LEVAQUIN PO SCH (18:00)
[2017-06-18] MEDS ORDERED: TYLENOL PO PRN (18:00)
[2017-06-18] MEDS ORDERED: ZOFRAN IV PRN (18:00)
[2017-06-18] MEDS ORDERED: XANAX PO PRN (18:00)
[2017-06-18] MEDS ORDERED: MORPHINE SULFATE IV PRN (18:00)
[2017-06-18] MEDS ORDERED: ATARAX PO PRN (18:00)
[2017-06-18] MEDS ORDERED: COLACE PO PRN (18:00)
[2017-06-18 19:00] VITALS: BP 133/60
[2017-06-18] MEDS: AGGRENOX PO SCH (20:48)
[2017-06-18] MEDS: MINERAL OIL PO SCH (21:00)
[2017-06-18] MEDS: ARICEPT PO SCH (21:00)
[2017-06-19 02:15] VITALS: BP 144/58
[2017-06-19] MEDS ORDERED: SYNTHROID ONE (05:18)
[2017-06-19] MEDS: SYNTHROID PO SCH (05:31)
[2017-06-19 05:58] LABS: CALCIUM 8.6 mg/dL (8.4-10.5); CARBON DIOXIDE 25.9 mmol/L (20.0-32)
[2017-06-19 06:07] LABS: BASOPHIL % 0.2 % (0.0-0.2); EOSINOPHIL # 0.6 10^3/uL (0.0-0.2); EOSINOPHIL % 6.7 % (0.0-5.0); HEMOGLOBIN 9.8 g/dL (12.0-15.0); LYMPHOCYTES # 1.6 10^3/uL (1.0-4.8); LYMPHOCYTES % 18.2 % (24.0-44.0); MEAN CELL HGB 28.2 pg (26-34); MEAN CELL HGB CONCENTRATION 31.4 g/dL (33-37); MEAN CORP VOLUME 89.9 fL (78-100); MEAN PLATELET VOLUME 10.9 fL (7.8-11.0); MONOCYTES # 1.1 10^3/uL (0.3-0.8); MONOCYTES % 12.1 % (5.0-12.0); NEUTROPHIL # 5.6 10^3/uL (1.8-7.7); NEUTROPHILS % 62.7 % (41.0-85.0); RED CELL DISTRIBUTION WIDTH 14.1 % (11.5-14.5); WHITE BLOOD CELL 8.9 10^3/uL (4.5-11.0)
[2017-06-19 08:01] VITALS: BP 133/55
[2017-06-19] MEDS: WELLBUTRIN XL PO SCH (08:41)
[2017-06-19] MEDS: AGGRENOX PO SCH ×2 (08:41→20:53)
[2017-06-19] MEDS: CELEXA PO SCH (08:41)
[2017-06-19] MEDS: ZESTRIL PO SCH (08:41)
[2017-06-19] MEDS ORDERED: LEVAQUIN 100 ML IV SCH (09:00)
--- NOTE | 2017-06-19 09:01 | HPH ---
ADMIT DATE: 06/18/2017 The patient was seen upon arrival to the floor. CHIEF COMPLAINT: A fall at the assisted living facility. HISTORY OF PRESENT ILLNESS: The patient is an 87-year-old woman with a past medical history significant for hypertension, advanced dementia, depression, hypothyroidism, who presented to the ER by the EMS after she had a fall at the assisted living facility. She did sustain a bruise and periorbital ecchymosis around her right eye. There was no known loss of consciousness. Trauma workup in the ER was negative for any acute process other than some mild hematoma above the right eye. She denied any chest pain, seizure activity, or syncopal event. She normally is ambulatory and has not had a recent fall. Per her report, she does not drink a lot of water at the group home facility. PAST MEDICAL HISTORY: Includes hypertension, advanced dementia, depression, hypothyroidism, anxiety disorder. PAST SURGICAL HISTORY: She has had a tubal ligation. Other surgeries are not known for sure. SOCIAL HISTORY: She is a resident of a group home facility. No alcohol, tobacco, or illicit drug use history. FAMILY HISTORY: Negative for early coronary artery disease or diabetes. ALLERGIES: HEPARIN AND SULFA. MEDICATIONS: Her current home medication list from the group home facility includes Tylenol as needed, Xanax as needed, Aggrenox 25/200 mg capsule twice a day, Colace as needed, Aricept 10 mg at night, escitalopram 10 mg daily, Haldol as needed, hydroxyzine as needed, levothyroxine 50 mcg daily, lisinopril 5 mg daily, mineral oil 25 mL at night, Wellbutrin XL 150 mg daily. REVIEW OF SYSTEMS: CARDIAC: She denies chest pain or shortness of breath. PULMONARY: No cough, sputum production, or pleuritic chest pain. GASTROINTESTINAL: No nausea, vomiting, diarrhea, or constipation. All else negative in the 10-point Review of Systems, except for as in the HPI. PHYSICAL EXAMINATION: VITAL SIGNS: Vital upon arrival: Height 160 cm, weight 56.7 kilograms, temperature 98.2 degrees Fahrenheit, pulse 64, respiratory rate 16, blood pressure 143/66 mmHg, and O2 saturations 94% on room air. GENERAL: She is alert, a chronically ill-appearing lady. HEENT: Her pupils were equal and reactive. She has some periorbital ecchymosis around her right eye that goes above her right eye. Extraocular muscles are intact. Oropharynx is clear. Mucous membranes are slightly dry. NECK: Supple, no lymphadenopathy. CARDIOVASCULAR: At the time of exam was regular rate and rhythm with a faint systolic murmur heard at the upper sternal border. PULMONARY: The lungs were clear bilaterally, no wheezing. ABDOMEN: Soft. Bowel sounds are present. Nontender to palpation. EXTREMITIES: No cyanosis, clubbing, or significant edema. NEUROLOGIC: Grossly nonfocal. LABORATORY DATA: CBC: White count 13.1, hemoglobin 10.9, platelets 296. DIFFERENTIAL: 82% neutrophils, 8% lymphocytes, 7% monocytes. BMP: Sodium 136, potassium 4.4, chloride 103, CO2 24, BUN 18, creatinine 1.2, glucose 123, calcium 8.8, total bilirubin 0.4, AST 18, ALT 15, alkaline phosphatase 61, total protein 6.9, albumin 3.2. Troponin I is less than 0.02, proBNP 355. Urinalysis: pH 6.0, specific gravity 1.020, positive nitrite, positive leukocyte esterase, too numerous to count WBCs, rare squamous epithelial cells, few bacteria. IMAGING STUDIES: CT-head performed in the Emergency Room did reveal chronic ischemic changes. There is some mild to moderate tissue swelling above the right eye. CT-cervical spine did show some chronic changes with some significant degenerative changes at C5-C6 and C6-C7 with no acute fractures. A shoulder x-ray was performed that showed no acute process. A chest x-ray performed in the Emergency Room showed no acute cardiopulmonary abnormality. ASSESSMENT AND PLAN: The patient is an 87-year-old woman here with dementia with altered mental status and behavioral disturbance secondary to urinary tract infection present on admission, with a [facility] the [facility] with right periorbital ecchymosis, with anemia likely secondary to chronic disease, hypothyroidism. 1. We will continue the current psychiatric medications, we will follow clinically. 2. Infectious Diseases will continue to treat the urinary tract infection with Levaquin started in the Emergency Room. 3. Continue her cardiovascular medications at the current dose. 4. Appropriate p.r.n. pain and nausea medications. 5. Fall precautions. 6. We will follow her anemia. There are no signs of active bleeding. No need for transfusion at this time. 7. DVT prophylaxis will be with SCDs since she did have a fall with a head injury. We will follow closely. Time spent with the patient on June 18, 2017 was 45 minutes. This plan was discussed with the patient and family, and they do understand and concur with the plans. James Del Angel MD DR: ALEXIS/mar JOB# [id number]
--- NOTE | 2017-06-19 09:24 | NUR ---
Dr. Bean Del Angel at bedside. New orders received to DC IV fluid.
--- NOTE | 2017-06-19 09:31 | NUR ---
Status Patient oriented to person only. Patient confused asking where she is and what happened. Oriented patient to surroundings. Patient sitting up in bed eating breakfast. Will continue to monitor. Call light within reach.
[2017-06-19] MEDS: TYLENOL PO PRN (09:35)
[2017-06-19] MEDS: LEVAQUIN PO SCH (09:35)
--- NOTE | 2017-06-19 09:48 | NUR ---
Leo Leo catheter discontinued. 9 cc of fluid removed from balloon. 250 cc of yellow urine drained from catheter. Patient due to void by 1747. Will continue to monitor. Call light within reach. Bed alarm on
--- NOTE | 2017-06-19 12:18 | NUR ---
Bathroom Patient up too bathroom x1 assist.
[2017-06-19 12:35] VITALS: BP 139/66
[2017-06-19] MEDS ORDERED: ZOFRAN ODT ONE (12:42)
[2017-06-19] MEDS: NORCO 5MG PO PRN ×2 (12:47→20:52)
[2017-06-19] MEDS ORDERED: ZOFRAN ODT SL ONE (13:00)
--- NOTE | 2017-06-19 14:33 | NUR ---
Status Patient resting with eyes closed. Respirations even and nonlabored. No s/s of distress noted. Family at bedside. Bed alarm on
[2017-06-19 19:24] VITALS: BP 114/54
--- NOTE | 2017-06-19 19:37 | NUR ---
PT SITTING UP IN BED WATCHING TV WITH FAMILY. DENIES PAIN.
--- NOTE | 2017-06-19 20:15 | NUR ---
pt family stated not to give a laxative or softener tonight pt had a bowel movement earlier this afternoon.
[2017-06-19] MEDS: ARICEPT PO SCH (20:51)
[2017-06-19] MEDS: MINERAL OIL PO SCH ×2 (20:54→21:00)
--- NOTE | 2017-06-19 22:15 | NUR ---
PT BED ALARM OFF PT WONDERING IN ROOM. REEDUCATED ABOUT USING CALL LIGHT. PT LOOKING FOR PURSE FAMILY TOOK HOME WITH THEM. PT ASSISTED BACK TO BED. BED ALARM ON.
[2017-06-20] MEDS: TYLENOL PO PRN (00:16)
--- NOTE | 2017-06-20 00:21 | NUR ---
pt medicated with Xanax 0.25 mg per pt request stated was anxious . pt keeps getting out of bed without calling. bed alarm is on reeducated about call light each time.
[2017-06-20 01:45] VITALS: BP 153/77
[2017-06-20] MEDS: SYNTHROID PO SCH (06:15)
--- NOTE | 2017-06-20 06:44 | NUR ---
REPORT GIVEN TO DAYNA HOWELL
--- NOTE | 2017-06-20 07:05 | NUR ---
Bed alarm Patient's bed alarm going off. Went to room to find patient already in the bathroom. Educated patient on risk for falls, reinforcement needed. Educated patient on use of call light, verbalized understanding but reinforcement needed. Patient confused. Assisted patient back to bed. Bed alarm on. Call light within reach.
--- NOTE | 2017-06-20 07:44 | NUR ---
MOVED PT TO [facility] WITH THE HELP OF TWO NURSES. PT UP IN BED TAKING HIS BREAKFAST.
--- NOTE | 2017-06-20 07:44 | NUR ---
GOT REPORT FROM THE DELI DEPARTMENT MANAGER NURSE.
[2017-06-20 08:35] VITALS: BP 169/71
[2017-06-20] MEDS: LEVAQUIN PO SCH (08:38)
[2017-06-20] MEDS: CELEXA PO SCH (08:38)
[2017-06-20] MEDS: WELLBUTRIN XL PO SCH (08:38)
[2017-06-20] MEDS: AGGRENOX PO SCH (08:38)
[2017-06-20] MEDS: ZESTRIL PO SCH (08:38)
[2017-06-20] MEDS ORDERED: LEVO500T51 PO (08:57)
--- NOTE | 2017-06-20 09:14 | PRM.DC ---
Discharge Summary Date of Discharge: Jun 20, 2017 Reason for Visit: Fall at home, altered mental status Patient History: Alzheimer's disease G8 SISTER G8 SISTER G8 SISTER Cerebrovascular disorder G8 SISTER Chronic obstructive pulmonary disease 33 FATHER 19 CHILD Congestive heart failure 19 CHILD Hypertension 19 CHILD 19 CHILD History Present Illness: (1) Fall SEVERITY: MILD INTERMITTENT Status: Acute ICD Code: W19.XXXA - Unspecified fall, initial encounter SNOMED: 6167833, 729468669 Assessment & Plan: Fall precautions (2) UTI (urinary tract infection) Permanent Comment: Repeat UA normal / negative - COntinue to monitor for clinical evidence of UTI Last Edited By: Tez Huffman MD on Apr 12, 2016 15:47 Status: Resolved ICD Code: N39.0 - Urinary tract infection, site not specified SNOMED: 36607042 Assessment & Plan: Continue oral Levaquin five more days at home Drink plenty of water (3) Altered mental status Status: Acute ICD Code: R41.82 - Altered mental status, unspecified SNOMED: 280152529 Assessment & Plan: Treat UTI as above (4) Dementia SEVERITY: MODERATE PERSISTENT Status: Chronic ICD Code: F03.90 - Unspecified dementia without behavioral disturbance SNOMED: 84821917 Assessment & Plan: Resume current medical management (5) Hypertension Permanent Comment: Patient was initially started on HCTZ, but her SBP dropped from 185-> 104 (large drop) and the patient became tachycardic. Stopped HCTZ. Started her Lisinopril. - Pt no longer tachy (mildly rita) - Continue Lisinopril. Last Edited By: Tez Huffman MD on Apr 15, 2016 19: 05 SEVERITY: MILD PERSISTENT Status: Chronic ICD Code: I10 - Essential (primary) hypertension SNOMED: 87285744 Assessment & Plan: Continue current medical management General: Alert, Oriented X3, Cooperative, No acute distress HEENT: PERRLA, EOMI, Mucous membr. moist/pink Neck: Supple, No JVD Lungs: Clear to auscultation, Normal air movement Heart: Regular rate, Normal S1, Normal S2 Abdomen: Normal bowel sounds, Soft, No tenderness Extremities: No clubbing, No cyanosis, No edema Skin: No breakdown, No significant lesion Neuro: Normal speech, Strength at 5/5 X4 ext, Cranial nerves 3-12 NL Psych/Mental Status: Mental status NL, Mood NL Results(Labs/Rad) Laboratory Tests Test 06/19/17 05:36 White Blood Count 8.9 10^3/uL Red Blood Count 3.47 10^6/uL Hemoglobin 9.8 g/dL Hematocrit 31.2 % Mean Corpuscular Volume 89.9 fL Mean Corpuscular Hemoglobin 28.2 pg Mean Corpuscular Hemoglobin Concent 31.4 g/dL Red Cell Distribution Width 14.1 % Platelet Count 248 10^3/uL Mean Platelet Volume 10.9 fL Neutrophils (%) (Auto) 62.7 % Lymphocytes (%) (Auto) 18.2 % Monocytes (%) (Auto) 12.1 % Neutrophils # (Auto) 5.6 10^3/uL Lymphocytes # (Auto) 1.6 10^3/uL Monocytes # (Auto) 1.1 10^3/uL Absolute Immature Granulocyte (auto 0.01 10^3 u/L Eosinophils % 6.7 % Basophils % 0.2 % Basophils # 0.0 10^3/uL Eosinophil Count 0.6 10^3/uL Sodium Level 139 mmol/L Potassium Level 4.2 mmol/L Chloride Level 106.0 mmol/L Carbon Dioxide Level 25.9 mmol/L Glucose Level 111 mg/dL Blood Urea Nitrogen 11 mg/dL Creatinine 0.94 mg/dL Calcium Level 8.6 mg/dL Anion Gap 11.3 Estimated GFR () 67.8 BUN/Creatinine Ratio 11.0 Percent Immature Gran (Cell Imm) 0.10 % Scheduled Aspirin/Dipyridamole (Aggrenox 25 Mg-200 Mg Capsule), 1 EACH PO BID, (Reported) Donepezil Hcl (Aricept), 1 TAB PO HS, (Reported) Escitalopram Oxalate (Escitalopram Oxalate), 10 MG PO DAILY, (Reported) Levofloxacin (Levaquin), 500 MG PO DAILY Levothyroxine Sodium (Levothyroxine Sodium), 50 MCG PO DAILY, (Reported) Lisinopril (Lisinopril), 5 MG PO DAILY Mineral Oil (Mineral Oil), 1 TSP TP HS, (Reported) [Bupropion Hcl], 150 MG PO DAILY Scheduled PRN Acetaminophen (Tylenol), 650 MG PO PRN PRN for HEADACHE Alprazolam (Alprazolam), 0.25 MG PO BID PRN for ANXIETY Docusate Sodium (Colace), 100 MG PO BID PRN for constipation Haloperidol (Haloperidol), 1 MG PO Q4HR PRN for AGITATION Hydroxyzine Hcl (Hydroxyzine Hcl), 25 MG PO Q6HR PRN for ITCHING Discontinued Medications Donepezil Hcl (Aricept), 5 MG PO HS Discontinued Reason: No Longer Taking Sepsis Evaluation @ Discharge Course Blood Pressure Systolic: 169 Blood Pressure Diastolic: 71 Blood Pressure Mean: 103 Notes Ms Nielsen presented to hospital with a fall at home. She also had altered mental status and workup revealed a UTI. She was given IV fluids and IV antibiotics and did clinically improve. She was ambulating within the room and wanting to go home. Follow up plans were discussed with patient. Plan Discharge Date: Jun 20, 2017 Dicharge DX: 1. Fall with head injury, 2. Metabolic encephalopathy, 3. UTI Discharge Disposition: Stable Plan Resume home medications plus Levaquin daily for five days Drink plenty of water Follow up with PCP next week Diet and activity as tolerated with fall precautions Discharge plans discussed with patient Time spent 25 minutes Problem Qualifiers (1) Fall: Encounter type: initial encounter Qualified Codes: W19.XXXA - Unspecified fall, initial encounter (2) UTI (urinary tract infection): Urinary tract infection type: site unspecified Hematuria presence: with hematuria Qualified Codes: N39.0 - Urinary tract infection, site not specified ; R31.9 - Hematuria, unspecified (3) Altered mental status: Altered mental status type: unspecified Qualified Codes: R41.82 - Altered mental status, unspecified (4) Dementia: Dementia type: vascular dementia (5) Hypertension: Hypertension type: essential hypertension Qualified Codes: I10 - Essential ( primary) hypertension IDALIA THOMAS MD Jun 20, 2017 09:14
--- NOTE | 2017-06-20 10:12 | PNH ---
DATE: 06/19/2017 SUBJECTIVE: No acute changes overnight. She is tolerating a diet well. She has gotten up on her own and gone to the bathroom numerous times without waiting for assistance and by getting there, she has done well, no fall. She does not drink a lot of water. She was instructed that it would be beneficial to drink more water. OBJECTIVE: VITAL SIGNS: T-max the last 24 hours is 98.6 degrees Fahrenheit, pulse 62, respiratory rate 20, blood pressure 139/72 mmHg, and O2 saturation 99% on room air. GENERAL: She is alert, in no acute distress at the time of exam. HEENT: Pupils equal, round, and reactive to light. Sclerae are anicteric. Oropharynx is clear. Mucous membranes are moist. She has some right periorbital ecchymosis. It has somewhat improved. NECK: Supple, no lymphadenopathy. CARDIOVASCULAR: At the time of exam was regular rate and rhythm. PULMONARY: The lungs were clear bilaterally, no wheezing. ABDOMEN: Soft. Bowel sounds are present. Nontender to palpation. EXTREMITIES: No cyanosis, clubbing, or significant edema. NEUROLOGIC: Grossly nonfocal. LABORATORY DATA: CBC: White count 8.9, hemoglobin 9.8, platelets 248. DIFFERENTIAL: 63% neutrophils, 18% lymphocytes, 12% monocytes. BMP: Sodium 139, potassium 4.2, chloride 106, CO2 26, BUN 11, creatinine 0.94, glucose 111, calcium 8.6. ASSESSMENT AND PLAN: The patient is an 87-year-old woman here with metabolic encephalopathy secondary to a gram-negative urinary tract infection, with a fall at home with head injury with right periorbital ecchymosis. 1. We will continue the current antibiotics. She is clinically improving. 2. Fall precautions. 3. Appropriate p.r.n. pain and nausea medications. 4. We will continue her cardiovascular medications. Time spent with the patient on June 19, 2017: 25 minutes James Del Angel MD DR: ALEXIS/mar JOB# [id number] [place]
[2017-06-20 12:30] VITALS: BP 169/71
== END 2017-06-20 13:22 | disposition home health service (06) | DRG 689 ==
LOC: ER 06:15 → EDBD 06:15 → MS 09:13
PROVIDERS: ADMIT Internal Medicine; ATTEND Internal Medicine
DX: N39.0 Urinary tract infection, site not specified (principal); G93.41 Metabolic encephalopathy; F03.91 Unspecified dementia, unspecified severity, with behavioral disturbance; B96.89 Other specified bacterial agents as the cause of diseases classified elsewhere; W19.XXXA Unspecified fall, initial encounter; I10 Essential (primary) hypertension; S05.11XA Contusion of eyeball and orbital tissues, right eye, initial encounter; R00.1 Bradycardia, unspecified; E03.9 Hypothyroidism, unspecified; D64.9 Anemia, unspecified; R00.0 Tachycardia, unspecified; F41.9 Anxiety disorder, unspecified; F32.9 Major depressive disorder, single episode, unspecified; Z98.51 Tubal ligation status; Z88.2 Allergy status to sulfonamides; Z88.8 Allergy status to other drugs, medicaments and biological substances; Y92.128 Other place in nursing home as the place of occurrence of the external cause; Y93.89 Activity, other specified; Y99.8 Other external cause status; Z82.49 Family history of ischemic heart disease and other diseases of the circulatory system; Z82.5 Family history of asthma and other chronic lower respiratory diseases; Z82.0 Family history of epilepsy and other diseases of the nervous system; Z82.3 Family history of stroke
CPT/HCPCS: 36415; 70450; 71010; 72125; 80048; 80053; 81000; 82550; 82553; 83880; 84484; 85025; 87040; 87077; 87086; 87186; 93005; 96374; 99285; A4338; J1956; J2405; J3490; J7030; Q0162; 73030-RT

== ENCOUNTER 2017-11-09 19:49 | Emergency (ER) | payer MEDICARE ==
[~2017-11-09] VITALS: Ht 160 cm; Wt 58.1 kg
[~2017-11-09 19:49] MED LIST changes: +DONE10TA57 PO; +LEVO500T51 PO
[2017-11-09 20:00] VITALS: BP 178/61
--- NOTE | 2017-11-09 20:13 | ER.PDOC ---
General Chief Complaint: Female Urogenital Problems Stated Complaint: POSS. UTI Time seen by MD: 20:12 Source: patient Exam Limitations: no limitations History of Present Illness Initial Comments AMS for 1 week Character of AMS: confused Context: [facility] resident Usually: alert but confused Allergies: Coded Allergies: Sulfa (Sulfonamide Antibiotics) (Verified Allergy, Unknown, 04/10/16) Uncoded Allergies: HEPRIN (Allergy, Unknown, UNKNOWN, 07/22/15) Home Meds Active Scripts Levofloxacin (LEVAQUIN) 500 Mg Tablet, 500 MG PO DAILY for 5 Days, #5 TABLET Prov:IDALIA THOMAS MD 06/20/17 Hydroxyzine Hcl (HYDROXYZINE HCL) 25 Mg Tablet, 25 MG PO Q6HR Y for ITCHING for 30 Days, TABLET Prov:IDALIA GRIDER IV, MD 04/19/16 [Bupropion Hcl] 150 MG TAB.ER.24H No Conflict Check, 150 MG PO DAILY for 30 Days Prov:IDALIA GRIDER IV, MD 04/19/16 Alprazolam (ALPRAZOLAM) 0.25 Mg Tablet, 0.25 MG PO BID Y for ANXIETY for 30 Days , TABLET Prov:IDALIA GRIDER IV, MD 04/19/16 Docusate Sodium (COLACE) 100 Mg Capsule, 100 MG PO BID Y for constipation for 30 Days, CAPSULE Prov:IDALIA GRIDER IV, MD 04/14/16 Haloperidol (HALOPERIDOL) 5 Mg Tablet, 1 MG PO Q4HR Y for AGITATION for 30 Days , TABLET Prov:IDALIA GRIDER IV, MD 04/14/16 Acetaminophen (TYLENOL) 325 Mg Tablet, 650 MG PO PRN Y for HEADACHE for 30 Days , TABLET Prov:IDALIA GRIDER IV, MD 04/14/16 Lisinopril (LISINOPRIL) 5 Mg Tablet, 5 MG PO DAILY for 30 Days, TABLET Prov:IDALIA GRIDER IV, MD 04/14/16 Reported Medications Donepezil Hcl (ARICEPT) 10 Mg Tablet, 1 TAB PO HS, #30 TAB 5 Refills 06/18/17 Mineral Oil (MINERAL OIL) 25 Ml Oil, 1 TSP TP HS 04/10/16 Escitalopram Oxalate (ESCITALOPRAM OXALATE) 10 Mg Tablet, 10 MG PO DAILY, TABLET 04/10/16 Aspirin/Dipyridamole (AGGRENOX 25 MG-200 MG CAPSULE) 1 Each Cpmp.12hr, 1 EACH PO BID 04/10/16 Levothyroxine Sodium (LEVOTHYROXINE SODIUM) 50 Mcg Tablet, 50 MCG PO DAILY, TABLET 04/10/16 Past Medical History Medical History: cardiac problems, hypertension, other Surgical History: no surgical history LMP (females 10-50): postmenopause Social History Smoking: non-smoker Alcohol Use: none Drug Use: none Review of Systems Constitutional: no symptoms reported Respiratory: no symptoms reported Cardiovascular: no symptoms reported Gastrointestinal: no symptoms reported Musculoskeletal: no symptoms reported All Other Systems: Reviewed and Negative Physical Exam General Appearance: alert, no distress HEENT: no apparent trauma Neuro/Psych: oriented x3, nml speech/cognition, nml mood/affect Cranial Nerves: nml as tested Cerebellar: nml as tested Peripheral Exam: motor nml, sensation nml, reflexes nml Neck: supple, non-tender, no carotid bruit Respiratory: no resp distress, breath sounds nml CVS: reg rate & rhythm, heart sounds nml Abdomen: non-tender, no organomegaly, no distention Skin: color nml, no rash, warm/dry Extremities: non-tender, nml ROM, no pedal edema Results/Orders Results/Orders Laboratory Tests Test 11/09/17 20:12 White Blood Count 7.8 10^3/uL (4.5-11.0) Red Blood Count 4.18 10^6/uL (4.00-5.20) Hemoglobin 11.7 g/dL (12.0-15.0) Hematocrit 36.8 % (36.0-46.0) Mean Corpuscular Volume 88.0 fL (78-100) Mean Corpuscular Hemoglobin 28.0 pg (26-34) Mean Corpuscular Hemoglobin Concent 31.8 g/dL (33-37) Red Cell Distribution Width 13.9 % (11.5-14.5) Platelet Count 327 10^3/uL (150-400) Mean Platelet Volume 10.7 fL (7.8-11.0) Neutrophils (%) (Auto) 64.2 % (41.0-85.0) Lymphocytes (%) (Auto) 20.2 % (24.0-44.0) Monocytes (%) (Auto) 9.7 % (5.0-12.0) Neutrophils # (Auto) 5.0 10^3/uL (1.8-7.7) Lymphocytes # (Auto) 1.6 10^3/uL (1.0-4.8) Monocytes # (Auto) 0.8 10^3/uL (0.3-0.8) Absolute Immature Granulocyte (auto 0.01 10^3 u/L (0-2) Eosinophils % 5.0 % (0.0-5.0) Basophils % 0.8 % (0.0-0.2) Basophils # 0.1 10^3/uL (0.0-0.1) Eosinophil Count 0.4 10^3/uL (0.0-0.2) Prothrombin Time 9.6 SEC (9.8-11.9) Prothrombin Time INR (Non-Therap) 1.0 Activated Partial Thromboplast Time 24.5 SEC (24.67-30.72) Urine Collection Type VOID Urine Color YELLOW (YELLOW) Urine Appearance CLEAR (CLEAR) Urine Bilirubin NEGATIVE MG/DL (NEGATIVE) Urine Ketones NEGATIVE (NEGATIVE) Urine Specific [place] 1.010 (1.005-1.035) Urine pH 6 (5.0-6.0) Urine Protein NEGATIVE (NEGATIVE) Urine Urobilinogen NORMAL (NEGATIVE) Urine Nitrate NEGATIVE (NEGATIVE) Urine Leukocyte Esterase NEGATIVE (NEGATIVE) Urine Blood NEGATIVE (NEGATIVE) Urine Glucose NORMAL (NEGATIVE) Sodium Level 137 mmol/L (132-145) Potassium Level 4.0 mmol/L (3.6-5.2) Chloride Level 101.0 mmol/L (96-109) Carbon Dioxide Level 27.6 mmol/L (20.0-32) Anion Gap 12.4 Blood Urea Nitrogen 17 mg/dL (7-18) Creatinine 1.21 mg/dL (0.59-1.40) Estimated GFR () 50.7 (>/=60) BUN/Creatinine Ratio 14.0 Glucose Level 104 mg/dL (70-110) Calcium Level 9.1 mg/dL (8.4-10.5) Total Bilirubin 0.2 mg/dL (0.2-1.0) Aspartate Amino Transf (AST/SGOT) 14 U/L (0-35) Alanine Aminotransferase (ALT/SGPT) 10 U/L (12-78) Alkaline Phosphatase 66 U/L (50-136) Total Creatine Kinase 48 U/L (26-192) Troponin I < 0.02 ng/mL (0.00-0.05) Total Protein 7.5 g/dL (6.4-8.2) Albumin 3.6 g/dL (3.4-5.0) Globulin 3.9 Percent Immature Gran (Cell Imm) 0.10 % (0.00-0.50) EKG/XRAY/CT/US EKG: NSR XRAY: chest (No active disease) CT Comments: No acute intracranial abnormality Departure Time of Disposition: 21:27 Disposition: 01 HOME, SELF-CARE Impression: Primary Impression: Dementia Additional Impression: Hypertension Condition: Stable Referrals: SHERMAN KEMP MD (PCP) PRIMARY CARE PROVIDER Additional Instructions: Continue home medications F/U with your PCP as needed Duration or Time Spent with Pa: 90 mins Problem Qualifiers Primary Impression: Dementia Dementia type: unspecified type Dementia behavioral disturbance: without behavioral disturbance Qualified Codes: F03.90 - Unspecified dementia without behavioral disturbance Additional Impression: Hypertension Hypertension type: unspecified Qualified Codes: I10 - Essential (primary) hypertension LEXI LAGUNAS MD Nov 09, 2017 20:13
--- NOTE | 2017-11-09 20:22 | PCM.EKG ---
[facility] Test Date: 2017-11-09 Test Time: 20:20:54 Pat Name: LORI HOYOS Department: Room: Gender: F Glass Sander: DOMINGA : 1930 Requested By: LEXI LAGUNAS Order Number: [id number] Reading MD: Lexi LAGUNAS Measurements Intervals [place] Rate: 64 P: 83 DC: 222 QRS: 96 QRSD: 86 T: 77 QT: 406 QTc: 418 Interpretive Statements Sinus rhythm with 1st degree AV block with premature atrial complexes Otherwise normal ECG Compared to ECG 06/18/2017 06:32:19 Atrial premature complex(es) now present Electronically Signed On 11-10-2017 0:40:23 CDT by Lexi LAGUNAS Please click the below link to view image of tracing.
--- NOTE | 2017-11-09 20:29 | NUR ---
CT PT TO CT WITH LEFTY MUNIZ AT THIS TIME.
--- NOTE | 2017-11-09 20:31 | DIREP ---
PROCEDURE:CHEST 1 VIEW COMPARISON:[facility], CR, XRAY CHEST SINGLE VW, 06/18/2017, 08:04 AM. INDICATIONS:AMS FINDINGS: LUNGS/PLEURA:No significant pulmonary parenchymal abnormalities. No effusions. VASCULATURE:Normal. Unremarkable pulmonary vasculature. CARDIAC:Normal. No cardiac silhouette abnormality or cardiomegaly. MEDIASTINUM:Normal. No visible mass or adenopathy. BONES:A mild dextroscoliosis is seen of the thoracic spine. OTHER:Multiple surgical clips are again seen in the left side of the lower neck. CONCLUSION:No active or acute cardiopulmonary disease is seen. Dictated by: Arthur Arshad M.D. on 11/09/2017 at 08:29 PM
[2017-11-09 20:39] LABS: BASOPHIL # 0.1 10^3/uL (0.0-0.1); BASOPHIL % 0.8 % (0.0-0.2); EOSINOPHIL # 0.4 10^3/uL (0.0-0.2); HEMOGLOBIN 11.7 g/dL (12.0-15.0); LYMPHOCYTES # 1.6 10^3/uL (1.0-4.8); LYMPHOCYTES % 20.2 % (24.0-44.0); MEAN CELL HGB CONCENTRATION 31.8 g/dL (33-37); MEAN PLATELET VOLUME 10.7 fL (7.8-11.0); MONOCYTES # 0.8 10^3/uL (0.3-0.8); MONOCYTES % 9.7 % (5.0-12.0); NEUTROPHILS % 64.2 % (41.0-85.0); RED CELL DISTRIBUTION WIDTH 13.9 % (11.5-14.5); WHITE BLOOD CELL 7.8 10^3/uL (4.5-11.0)
[2017-11-09 20:42] LABS: BILIRUBIN,URINE NEGATIVE (NEGATIVE); UROBILINOGEN,URINE NORMAL (NEGATIVE)
[2017-11-09 20:46] LABS: APPEARANCE,URINE CLEAR (CLEAR); UA COLOR YELLOW (YELLOW)
--- NOTE | 2017-11-09 20:48 | DIREP ---
PROCEDURE:CT HEAD OR BRAIN W/O CONTRAST COMPARISON:[facility], CT, CT HEAD BRAIN W/O CONTRAST, 06/18/2017, 06:52 AM. INDICATIONS:AMS TECHNIQUE:CT images were created without intravenous contrast. FINDINGS: VENTRICLES:There is generalized prominence again seen of the ventricles and sulci. CEREBRUM:A remote lacunar infarct is seen in the right basal ganglia. Remote infarcts are again seen in the left frontal and left parietal lobes. Decreased attenuation is seen in the periventricular white matter bilaterally. CEREBELLUM:A small remote infarct is again seen in the right side of the cerebellum. BRAINSTEM:Negative. BASAL CISTERNS:Negative. HEMORRHAGE:No MASS LESION:No ACUTE INFARCT:No SKULL:Normal. SINUSES:Normal. OTHER:None CONCLUSION:There are findings consistent with generalized atrophy with remote infarcts in the left frontal and left parietal lobes and a small remote lacunar infarct in the right basal ganglia and small remote infarct in the right side of the cerebellum. No hemorrhage or acute infarct is seen. Dictated by: Arthur Arshad M.D. on 11/09/2017 at 08:39 PM
[2017-11-09 20:59] LABS: ALKALINE PHOSPHATASE 66 U/L (50-136); ASPARTATE AMINO TRANSFERASE 14 U/L (0-35); CALCIUM 9.1 mg/dL (8.4-10.5); CARBON DIOXIDE 27.6 mmol/L (20.0-32); GLUCOSE 104 mg/dL (70-110)
[2017-11-09 21:09] VITALS: BP 127/59
[2017-11-09 21:25] LABS: ALANINE AMINOTRANSFERASE(ML) 10 U/L (12-78)
[2017-11-09 21:45] VITALS: BP 127/59
== END 2017-11-09 21:40 | disposition home or self-care (01) ==
LOC: EDBD 19:49 → ER 19:49
DX: F03.90 Unspecified dementia, unspecified severity, without behavioral disturbance, psychotic disturbance, mood disturbance, and anxiety (principal); I10 Essential (primary) hypertension; Z79.82 Long term (current) use of aspirin; Z88.2 Allergy status to sulfonamides; Z79.899 Other long term (current) drug therapy; R79.1 Abnormal coagulation profile
CPT/HCPCS: 36415; 70450; 71045; 80053; 81002; 82550; 84484; 85025; 85610; 85730; 93005; 99285

== ENCOUNTER 2017-11-11 02:22 | Emergency (ER) | payer MEDICARE ==
[~2017-11-11] VITALS: Ht 162.6 cm; Wt 45.4 kg
--- NOTE | 2017-11-11 02:29 | ER.PDOC ---
General Chief Complaint: "I'm having a stroke" Stated Complaint: POSS CVA Time seen by MD: 02:29 Source: patient Exam Limitations: other (dementia) History of Present Illness Initial Comments "I think I've had a stroke. I've talked to people who have had a stroke and I think that's what's happening to me." "I think something is wrong. I'm just not sure what it is. I feel like like I can't think straight." "Please call my . If he's home and I don't get home soon, he'll be upset." "I live at [address] with my ." We called assisted living: Pt lives there alone. Pt has been telling everyone that she's having a stroke. Without doing any assessment, [place] sent pt by ambulance. Pt is stable, speaking, no neurologic symptoms whatsoever. pt was seen 11/09 and had full work up including CT brain and cxr as well as urine. Nothing was uncovered. Timing/Duration: 1 week Severity/Quality: mild Radiation: no radiation Associated Symptoms: denies symptoms Exacerbated by: nothing Relieved By: nothing Allergies: Coded Allergies: Sulfa (Sulfonamide Antibiotics) (Verified Allergy, Unknown, 04/10/16) Uncoded Allergies: HEPRIN (Allergy, Unknown, UNKNOWN, 07/22/15) Home Meds Active Scripts Levofloxacin (LEVAQUIN) 500 Mg Tablet, 500 MG PO DAILY for 5 Days, #5 TABLET Prov:IDALIA THOMAS MD 06/20/17 Hydroxyzine Hcl (HYDROXYZINE HCL) 25 Mg Tablet, 25 MG PO Q6HR Y for ITCHING for 30 Days, TABLET Prov:IDALIA GRIDER IV, MD 04/19/16 [Bupropion Hcl] 150 MG TAB.ER.24H No Conflict Check, 150 MG PO DAILY for 30 Days Prov:IDALIA GRIDER IV, MD 04/19/16 Alprazolam (ALPRAZOLAM) 0.25 Mg Tablet, 0.25 MG PO BID Y for ANXIETY for 30 Days , TABLET Prov:IDALIA GRIDER IV, MD 04/19/16 Docusate Sodium (COLACE) 100 Mg Capsule, 100 MG PO BID Y for constipation for 30 Days, CAPSULE Prov:IDALIA GRIDER IV, MD 04/14/16 Haloperidol (HALOPERIDOL) 5 Mg Tablet, 1 MG PO Q4HR Y for AGITATION for 30 Days , TABLET Prov:IDALIA GRIDER IV, MD 04/14/16 Acetaminophen (TYLENOL) 325 Mg Tablet, 650 MG PO PRN Y for HEADACHE for 30 Days , TABLET Prov:IDALIA GRIDER IV, MD 04/14/16 Lisinopril (LISINOPRIL) 5 Mg Tablet, 5 MG PO DAILY for 30 Days, TABLET Prov:IDALIA GRIDER IV, MD 04/14/16 Reported Medications Donepezil Hcl (ARICEPT) 10 Mg Tablet, 1 TAB PO HS, #30 TAB 5 Refills 06/18/17 Mineral Oil (MINERAL OIL) 25 Ml Oil, 1 TSP TP HS 04/10/16 Escitalopram Oxalate (ESCITALOPRAM OXALATE) 10 Mg Tablet, 10 MG PO DAILY, TABLET 04/10/16 Aspirin/Dipyridamole (AGGRENOX 25 MG-200 MG CAPSULE) 1 Each Cpmp.12hr, 1 EACH PO BID 04/10/16 Levothyroxine Sodium (LEVOTHYROXINE SODIUM) 50 Mcg Tablet, 50 MCG PO DAILY, TABLET 04/10/16 Past Medical History Medical History: other (see rn notes; dementia) Surgical History: no surgical history Social History Drug Use: none Constitutional: denies no symptoms reported, denies see HPI, denies chills, denies diaphoresis, denies fever, denies malaise, denies weakness (pt denied), denies other EENTM: denies no symptoms reported, denies see HPI, denies eye pain, denies blurred vision, denies tearing, denies double vision, denies ear pain, denies ear discharge, denies nose pain, denies nose congestion, denies throat pain, denies throat swelling, denies mouth pain, denies mouth swelling, denies other Respiratory: denies no symptoms reported, denies see HPI, denies cough, denies orthopnea, denies shortness of breath, denies SOB with exertion, denies SOB at rest, denies stridor, denies wheezing, denies other Cardiovascular: denies no symptoms reported, denies see HPI, denies chest pain , denies edema, denies irregular heart rate, denies lightheadedness, denies palpitations, denies syncope, denies other Gastrointestinal: denies no symptoms reported, denies see HPI, denies abdomen distended, denies abdominal pain, denies blood streaked bowels, denies constipated, denies diarrhea, denies difficulty swallowing, denies nausea, denies poor appetite, denies poor fluid intake, denies rectal bleeding, denies vomiting, denies other Genitourinary: denies no symptoms reported, denies see HPI, denies burning, denies dysuria, denies discharge, denies frequency, denies flank pain, denies hematuria, denies incontinence, denies pain, denies urgency, denies other Musculoskeletal: denies no symptoms reported, denies see HPI, denies back pain , denies gout, denies joint pain, denies joint swelling, denies muscle pain, denies muscle stiffness, denies neck pain, denies other Skin: denies no symptoms reported, denies see HPI, denies change in color, denies change in hair/nails, denies dryness, denies lesions, denies lumps, denies rash, denies other Psychiatric/Neurological: denies no symptoms reported, denies see HPI, denies anxiety, denies depressed, denies emotional problems, denies headache, denies numbness, denies paresthesia, denies pre-existing deficit, denies seizure, denies tingling, denies tremors, denies weakness, other ("not feeling like myself") Endocrine: denies no symptoms reported, denies see HPI, denies excessive sweating, denies flushing, denies intolerance to cold, denies intolerance to heat, denies increased hunger, denies increased thrist, denies increased urine, denies unexplained weight gain, denies unexplaned weight loss, denies other Hematologic/Lymphatic: denies no symptoms reported, denies see HPI, denies anemia, denies blood clots, denies easy bleeding, denies easy bruising, denies swollen glands, denies other Physical Exam General Appearance: No Apparent Distress, WD/WN, Anxious HEENT: PERRL/EOMI, Normal ENT Inspection Neck: Non-Tender, Full Range of Motion, Supple, Normal Inspection Respiratory: chest non-tender, lungs clear, normal breath sounds, no respiratory distress Cardiovascular: Normal Peripheral Pulses, Regular Rate, Rhythm, No Edema, No Gallop, No JVD, No Murmur Gastrointestinal: No Organomegaly, No Pulsatile Mass, Non Tender Extremities: Normal Range of Motion, Non-Tender, Normal Inspection, No Pedal Edema, No Calf Tenderness Neurologic/Psychiatric: test clerk II-XII NML as Tested, No Motor/Sensory Deficits, Alert, Normal Mood/Affect, Oriented x 3 Skin: Normal Color, Warm/Dry Progress Progress I explained to pt that her forgetful disease is getting worse and that this is what this is. Departure Time of Disposition: 02:50 Disposition: 01 HOME, SELF-CARE Impression: Primary Impression: Dementia Condition: Stable Referrals: SHERMAN KEMP MD (PCP) PRIMARY CARE PROVIDER Duration or Time Spent with Pa: 15 Problem Qualifiers Primary Impression: Dementia Dementia type: unspecified type Dementia behavioral disturbance: without behavioral disturbance Qualified Codes: F03.90 - Unspecified dementia without behavioral disturbance RADHA NOVAK MD Nov 11, 2017 02:29
[2017-11-11 03:52] VITALS: BP 164/69
== END 2017-11-11 03:30 | disposition home or self-care (01) ==
LOC: ER 02:22 → EDBD 02:22 → ER 03:30
DX: F03.90 Unspecified dementia, unspecified severity, without behavioral disturbance, psychotic disturbance, mood disturbance, and anxiety (principal); Z88.2 Allergy status to sulfonamides; Z79.899 Other long term (current) drug therapy
CPT/HCPCS: 99284

== ENCOUNTER 2017-11-11 10:36 | Emergency (ER) | payer MEDICARE ==
[~2017-11-11] VITALS: Ht 160 cm; Wt 52.2 kg
[2017-11-11 11:15] VITALS: BP 144/73
--- NOTE | 2017-11-11 11:25 | ER.PDOC ---
General Chief Complaint: Medical Clearance Stated Complaint: ALTERED MENTAL STATUS Time seen by MD: 11:15 Source: patient, RN/MD, custodial records History of Present Illness Initial Comments Pt has been acting more aggressive and belligerent, calling police for about 1 week, seen by Dr Andres, who recommended GP admission Timing/Duration: week Severity: moderate Associated Symptoms: Hostile, Confused Allergies: Coded Allergies: Sulfa (Sulfonamide Antibiotics) (Verified Allergy, Unknown, 04/10/16) Uncoded Allergies: HEPRIN (Allergy, Unknown, UNKNOWN, 07/22/15) Home Meds Active Scripts Levofloxacin (LEVAQUIN) 500 Mg Tablet, 500 MG PO DAILY for 5 Days, #5 TABLET Prov:IDALIA THOMAS MD 06/20/17 Hydroxyzine Hcl (HYDROXYZINE HCL) 25 Mg Tablet, 25 MG PO Q6HR Y for ITCHING for 30 Days, TABLET Prov:IDALIA GRIDER IV, MD 04/19/16 [Bupropion Hcl] 150 MG TAB.ER.24H No Conflict Check, 150 MG PO DAILY for 30 Days Prov:IDALIA GRIDER IV, MD 04/19/16 Alprazolam (ALPRAZOLAM) 0.25 Mg Tablet, 0.25 MG PO BID Y for ANXIETY for 30 Days , TABLET Prov:IDALIA GRIDER IV, MD 04/19/16 Docusate Sodium (COLACE) 100 Mg Capsule, 100 MG PO BID Y for constipation for 30 Days, CAPSULE Prov:IDALIA GRIDER IV, MD 04/14/16 Haloperidol (HALOPERIDOL) 5 Mg Tablet, 1 MG PO Q4HR Y for AGITATION for 30 Days , TABLET Prov:IDALIA GRIDRE IV, MD 04/14/16 Acetaminophen (TYLENOL) 325 Mg Tablet, 650 MG PO PRN Y for HEADACHE for 30 Days , TABLET Prov:IDALIA GRIDER IV, MD 04/14/16 Lisinopril (LISINOPRIL) 5 Mg Tablet, 5 MG PO DAILY for 30 Days, TABLET Prov:IDALIA GRIDER IV, MD 04/14/16 Reported Medications Donepezil Hcl (ARICEPT) 10 Mg Tablet, 1 TAB PO HS, #30 TAB 5 Refills 06/18/17 Mineral Oil (MINERAL OIL) 25 Ml Oil, 1 TSP TP HS 04/10/16 Escitalopram Oxalate (ESCITALOPRAM OXALATE) 10 Mg Tablet, 10 MG PO DAILY, TABLET 04/10/16 Aspirin/Dipyridamole (AGGRENOX 25 MG-200 MG CAPSULE) 1 Each Cpmp.12hr, 1 EACH PO BID 04/10/16 Levothyroxine Sodium (LEVOTHYROXINE SODIUM) 50 Mcg Tablet, 50 MCG PO DAILY, TABLET 04/10/16 Past Medical History Medical History: hypertension Surgical History: no surgical history LMP (females 10-50): postmenopause Social History Smoking: non-smoker Alcohol Use: none Drug Use: none Review of Systems Constitutional: no symptoms reported EENTM: no symptoms reported Respiratory: no symptoms reported Cardiovascular: no symptoms reported Gastrointestinal: no symptoms reported Genitourinary: no symptoms reported Musculoskeletal: no symptoms reported Skin: no symptoms reported Psychiatric/Neurological: other (Disoriented, confused) Physical Exam General Appearance: No acute distress, Alert EENT: No nystagmus, PERRLA, EOM's intact, NML ENT inspection, Pharynx nml, NML gag reflex Neck: Non-Tender, Full Range of Motion, Supple, Normal Inspection Respiratory: chest non-tender, lungs clear, normal breath sounds, no respiratory distress, no accessory muscle use Cardiovascular: Normal Peripheral Pulses, Regular Rate, Rhythm, No Edema, No Gallop, No JVD, No Murmur Gastrointestinal: Normal Bowel Sounds, No Organomegaly, No Pulsatile Mass, Non Tender, Soft Extremities: Non-Tender, Normal Range of Motion, No Evidence of Trauma, No Edema Neurological/Psychiatric: Calm, Disoriented x 3, Flat Appearance/Memory/Insight: Appropriate Appearance, Neat, Impaired Insight, Impaired Recent Memory, Impaired Remote Memory Behavior/Eye Contact/Speech: Good Eye Contact Thoughts/Hallucinations: No Apparent Hallucination Skin: Normal Color, Warm/Dry Results/Orders Results/Orders Laboratory Tests Test 11/11/17 11:18 11/11/17 11:29 Urine Collection Type UNKNOWN Urine Color YELLOW (YELLOW) Urine Appearance CLEAR (CLEAR) Urine Bilirubin NEGATIVE MG/DL (NEGATIVE) Urine Ketones NEGATIVE (NEGATIVE) Urine Specific [place] 1.020 (1.005-1.035) Urine pH 6 (5.0-6.0) Urine Protein NEGATIVE (NEGATIVE) Urine Urobilinogen NORMAL (NEGATIVE) Urine Nitrate NEGATIVE (NEGATIVE) Urine Leukocyte Esterase 25 /uL TRACE (NEGATIVE) Urine Blood NEGATIVE (NEGATIVE) Urine RBC NONE SEEN RBC/HPF (NONE Urine WBC 5-10 WBC/HPF (0-2) Urine Squamous Epithelial Cells MODERATE #/HPF (FEW) Urine Bacteria FEW (NONE SEEN) Urine Glucose NORMAL (NEGATIVE) Urine Opiates (GC/MS) NEGATIVE ng/mL (CUT-OFF:300) Urine Amphetamine Qualitative POSITIVE ng/mL (CUTOFF:1000) Urine Barbiturates, Qualitative NEGATIVE ng/mL (CUT-OFF:200) Ur Tricyclic Antidepressants Screen NEGATIVE Urine Phencyclidine (PCP) (TLC) NEGATIVE ng/mL (CUT-OFF:25) Urine Benzodiazepines, Qualitative POSITIVE ng/mL (CUT-OFF:200) Urine Cocaine Qualitative NEGATIVE ng/mL (CUT-OFF:300) Ur Tetrahydrocannabinol (THC) Scrn NEGATIVE ng/mL (CUT-OFF:50) White Blood Count 6.6 10^3/uL (4.5-11.0) Red Blood Count 3.95 10^6/uL (4.00-5.20) Hemoglobin 11.0 g/dL (12.0-15.0) Hematocrit 35.1 % (36.0-46.0) Mean Corpuscular Volume 88.9 fL (78-100) Mean Corpuscular Hemoglobin 27.8 pg (26-34) Mean Corpuscular Hemoglobin Concent 31.3 g/dL (33-37) Red Cell Distribution Width 14.0 % (11.5-14.5) Platelet Count 295 10^3/uL (150-400) Mean Platelet Volume 10.5 fL (7.8-11.0) Neutrophils (%) (Auto) 55.5 % (41.0-85.0) Lymphocytes (%) (Auto) 23.1 % (24.0-44.0) Monocytes (%) (Auto) 13.1 % (5.0-12.0) Neutrophils # (Auto) 3.7 10^3/uL (1.8-7.7) Lymphocytes # (Auto) 1.5 10^3/uL (1.0-4.8) Monocytes # (Auto) 0.9 10^3/uL (0.3-0.8) Absolute Immature Granulocyte (auto 0 10^3 u/L (0-2) Eosinophils % 7.1 % (0.0-5.0) Basophils % 1.2 % (0.0-0.2) Basophils # 0.1 10^3/uL (0.0-0.1) Eosinophil Count 0.5 10^3/uL (0.0-0.2) Prothrombin Time 9.7 SEC (9.8-11.9) Prothrombin Time INR (Non-Therap) 1.0 Activated Partial Thromboplast Time 25.2 SEC (24.67-30.72) Sodium Level 138 mmol/L (132-145) Potassium Level 4.0 mmol/L (3.6-5.2) Chloride Level 104.0 mmol/L (96-109) Carbon Dioxide Level 27.4 mmol/L (20.0-32) Anion Gap 10.6 Blood Urea Nitrogen 12 mg/dL (7-18) Creatinine 1.39 mg/dL (0.59-1.40) Estimated GFR () 43.2 (>/=60) BUN/Creatinine Ratio 8.0 Glucose Level 99 mg/dL (70-110) Calcium Level 8.8 mg/dL (8.4-10.5) Total Bilirubin 0.3 mg/dL (0.2-1.0) Aspartate Amino Transf (AST/SGOT) 12 U/L (0-35) Alanine Aminotransferase (ALT/SGPT) 11 U/L (12-78) Alkaline Phosphatase 55 U/L (50-136) Total Creatine Kinase 39 U/L (26-192) Creatine Kinase MB 0.6 ng/mL (0.5-3.6) Troponin I < 0.02 ng/mL (0.00-0.05) C-Reactive Protein < 0.05 mg/dL (0.00-5.00) Pro-B-Type Natriuretic Peptide 188 pg/mL (0-450) Total Protein 6.7 g/dL (6.4-8.2) Albumin 3.3 g/dL (3.4-5.0) Globulin 3.4 Vitamin B12 Level 313 pg/mL (193-986) Thyroid Stimulating Hormone (TSH) 4.145 mIU/mL (0.358-3.740) Valproic Acid (Depakene) Level < 3 ug/mL (50-100) [place] Level < 0.20 mmol/L (0.6-1.2) Percent Immature Gran (Cell Imm) 0.00 % (0.00-0.50) Departure Time of Disposition: 12:38 Disposition: 65 XFER TO PSYCH HOSP/UNIT Impression: Primary Impression: Dementia Additional Impression: UTI (urinary tract infection) Condition: Stable Referrals: SHERMAN ANDRES MD (PCP) PRIMARY CARE PROVIDER Duration or Time Spent with Pa: JUAN YEAGER MD Nov 11, 2017 11:25
[2017-11-11 11:27] LABS: BILIRUBIN,URINE NEGATIVE (NEGATIVE); UROBILINOGEN,URINE NORMAL (NEGATIVE)
[2017-11-11 11:34] LABS: BASOPHIL # 0.1 10^3/uL (0.0-0.1); BASOPHIL % 1.2 % (0.0-0.2); EOSINOPHIL # 0.5 10^3/uL (0.0-0.2); EOSINOPHIL % 7.1 % (0.0-5.0); LYMPHOCYTES # 1.5 10^3/uL (1.0-4.8); LYMPHOCYTES % 23.1 % (24.0-44.0); MEAN CELL HGB 27.8 pg (26-34); MEAN CELL HGB CONCENTRATION 31.3 g/dL (33-37); MEAN CORP VOLUME 88.9 fL (78-100); MEAN PLATELET VOLUME 10.5 fL (7.8-11.0); MONOCYTES # 0.9 10^3/uL (0.3-0.8); MONOCYTES % 13.1 % (5.0-12.0); NEUTROPHIL # 3.7 10^3/uL (1.8-7.7); NEUTROPHILS % 55.5 % (41.0-85.0); WHITE BLOOD CELL 6.6 10^3/uL (4.5-11.0)
[2017-11-11 11:43] LABS: APPEARANCE,URINE CLEAR (CLEAR); UA COLOR YELLOW (YELLOW)
--- NOTE | 2017-11-11 11:46 | PCM.EKG ---
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
--- NOTE | 2017-11-11 12:09 | DIREP ---
PROCEDURE:CHEST 2 VIEWS COMPARISON:[facility], CR, XRAY CHEST SINGLE VW, 11/09/2017, 08:09 PM. [facility], CR, XRAY CHEST SINGLE VW, 07/30/2016, 05:52 PM. INDICATIONS:AMS FINDINGS: LUNGS/PLEURA:Blunting of the left costophrenic angle VASCULATURE:Normal. Unremarkable pulmonary vasculature. CARDIAC:Normal. No cardiac silhouette abnormality or cardiomegaly. MEDIASTINUM: There is atherosclerotic aortic calcium. BONES:Thoracic dextroscoliosis OTHER:Negative. CONCLUSION: 1. Blunting of the left costophrenic angle suggesting left pleural. Dictated by: Lalito Carl Jr. on 11/11/2017 at 12:06 PM
[2017-11-11 12:19] LABS: ALANINE AMINOTRANSFERASE(ML) 11 U/L (12-78); ALKALINE PHOSPHATASE 55 U/L (50-136); ASPARTATE AMINO TRANSFERASE 12 U/L (0-35); CALCIUM 8.8 mg/dL (8.4-10.5); CARBON DIOXIDE 27.4 mmol/L (20.0-32); GLUCOSE 99 mg/dL (70-110)
[2017-11-11 12:22] VITALS: BP 140/75
--- NOTE | 2017-11-11 12:38 | NUR ---
[facility] GP NOTIFIED OF PT IN ER NEEDING EVAL FOR [place].
--- NOTE | 2017-11-11 12:42 | NUR ---
[facility] Talked to Leonarda from [facility], she stated that she was going to send Stella the Deputy Sheriff Generalist/Bailiff down to evaluate patient and she will let us know who the excepting doctor will be after they evaluate patient
--- NOTE | 2017-11-11 12:46 | NUR ---
[facility] Leonarda from behavior [facility] called to let us know that she was going to call Dr. Blue office and get information and would be down here in about 15 minutes to evaluate patient
[2017-11-11 13:22] VITALS: BP 127/59
--- NOTE | 2017-11-11 13:32 | NUR ---
[facility] Leonarda from behavior [facility] here for evaluation of patient
[2017-11-11 14:49] VITALS: BP 142/56
[2017-11-11 15:02] VITALS: BP 127/59
[2017-11-12] MEDS ORDERED: LEVAQUIN PO SCH (09:00)
== END 2017-11-11 14:49 ==
LOC: ER 10:36
DX: F03.90 Unspecified dementia, unspecified severity, without behavioral disturbance, psychotic disturbance, mood disturbance, and anxiety (principal); N39.0 Urinary tract infection, site not specified; I10 Essential (primary) hypertension; R79.1 Abnormal coagulation profile; Z88.2 Allergy status to sulfonamides; Z79.899 Other long term (current) drug therapy
CPT/HCPCS: 36415; 71046; 80053; 80164; 80178; 80307; 81000; 82550; 82553; 82607; 83880; 84443; 84484; 85025; 85610; 85730; 86140; 87086; 93005; 99285

== ENCOUNTER 2017-11-18 08:49 | Emergency (ER) | payer MEDICARE ==
[~2017-11-18] VITALS: Ht 162.6 cm; Wt 51.3 kg
[2017-11-18] MEDS ORDERED: WATER ONE (08:54)
[2017-11-18 08:59] VITALS: BP 131/75
--- NOTE | 2017-11-18 09:03 | NUR ---
ARRIVAL PATIENT ARRIVED TO ED3 VIA GURNEY BY [facility], C/O OF FALL AT AN UNKNOW TIME TODAY, PATIENT CURRENTLY LIVES IN AN ASSISTED LIVING([facility]). ON ROUNDS TODAY STAFF FOUND HER IN BED WITH AN APPROX [id number] SHAPED LACERATION TO THE BACK OF THE HEAD. PATIENT DOES HAVE A HISTORY OF DEMENTIA AND CAN NOT GIVE ACCURATE INFORMATION ON THE OCCURRENCE. UNSURE IF PATIENT HAD A LOC, JAYA RN AT BEDSIDE ATTEMPTED TO CLEAN WOUND, PATIENT YELLING OUT, DOCTOR BEBO TO ROOM WILL IRRIGATE AND CLEAN AFTER CAT SCAN AND IS ABLE TO USE LIDOCAINE. NO OTHER INJURIES VOICED.
[2017-11-18] MEDS ORDERED: BOOSTRIX VACCINE SYRINGE IM STA (09:12)
--- NOTE | 2017-11-18 09:17 | NUR ---
CT PT TAKEN TO CT VIA STRETCHER
[2017-11-18] MEDS ORDERED: XYLOCAINE 2%-EPI 1:100,000 ONE (09:18)
[2017-11-18 09:21] LABS: BASOPHIL # 0.1 10^3/uL (0.0-0.1); BASOPHIL % 0.5 % (0.0-0.2); EOSINOPHIL # 0.3 10^3/uL (0.0-0.2); EOSINOPHIL % 2.6 % (0.0-5.0); HEMOGLOBIN 11.2 g/dL (12.0-15.0); LYMPHOCYTES # 1.8 10^3/uL (1.0-4.8); LYMPHOCYTES % 17.1 % (24.0-44.0); MEAN CELL HGB 27.9 pg (26-34); MEAN CELL HGB CONCENTRATION 32.2 g/dL (33-37); MEAN CORP VOLUME 86.8 fL (78-100); MEAN PLATELET VOLUME 10.1 fL (7.8-11.0); MONOCYTES # 1.1 10^3/uL (0.3-0.8); MONOCYTES % 10.8 % (5.0-12.0); NEUTROPHIL # 7.2 10^3/uL (1.8-7.7); NEUTROPHILS % 68.8 % (41.0-85.0); RED CELL DISTRIBUTION WIDTH 13.9 % (11.5-14.5); WHITE BLOOD CELL 10.5 10^3/uL (4.5-11.0)
[2017-11-18 09:30] VITALS: BP 155/66
--- NOTE | 2017-11-18 09:36 | ER.PDOC ---
General Chief Complaint: Trauma Stated Complaint: HEAD LAC Time seen by MD: 09:32 Source: EMS, [facility] records Exam Limitations: clinical condition History of Present Illness Initial Comments Laceration to head from falling last night. Patient does not remember when she fell. She was found in her bed like that this morning. Occurred: other (unsure) Where: home Severity: moderate Injuries/Pain Location: head Context: Unknown Loss of Consciousness: Unsure Associated Symptoms: headache Allergies: Coded Allergies: Sulfa (Sulfonamide Antibiotics) (Verified Allergy, Unknown, 04/10/16) Uncoded Allergies: HEPRIN (Allergy, Unknown, UNKNOWN, 07/22/15) MEDS Active Scripts Levofloxacin (LEVAQUIN) 500 Mg Tablet, 500 MG PO DAILY for 5 Days, #5 TABLET Prov:IDALIA THOMAS MD 06/20/17 Hydroxyzine Hcl (HYDROXYZINE HCL) 25 Mg Tablet, 25 MG PO Q6HR Y for ITCHING for 30 Days, TABLET Prov:IDALIA GRIDER IV, MD 04/19/16 [Bupropion Hcl] 150 MG TAB.ER.24H No Conflict Check, 150 MG PO DAILY for 30 Days Prov:IDALIA GRIDER IV, MD 04/19/16 Alprazolam (ALPRAZOLAM) 0.25 Mg Tablet, 0.25 MG PO BID Y for ANXIETY for 30 Days , TABLET Prov:IDALIA GRIDER IV, MD 04/19/16 Docusate Sodium (COLACE) 100 Mg Capsule, 100 MG PO BID Y for constipation for 30 Days, CAPSULE Prov:IDALIA GRIDER IV, MD 04/14/16 Haloperidol (HALOPERIDOL) 5 Mg Tablet, 1 MG PO Q4HR Y for AGITATION for 30 Days , TABLET Prov:IDALIA GRIDER IV, MD 04/14/16 Acetaminophen (TYLENOL) 325 Mg Tablet, 650 MG PO PRN Y for HEADACHE for 30 Days , TABLET Prov:IDALIA GRIDER IV, MD 04/14/16 Lisinopril (LISINOPRIL) 5 Mg Tablet, 5 MG PO DAILY for 30 Days, TABLET Prov:IDALIA GRIDER IV, MD 04/14/16 Reported Medications Donepezil Hcl (ARICEPT) 10 Mg Tablet, 1 TAB PO HS, #30 TAB 5 Refills 06/18/17 Mineral Oil (MINERAL OIL) 25 Ml Oil, 1 TSP TP HS 04/10/16 Escitalopram Oxalate (ESCITALOPRAM OXALATE) 10 Mg Tablet, 10 MG PO DAILY, TABLET 04/10/16 Aspirin/Dipyridamole (AGGRENOX 25 MG-200 MG CAPSULE) 1 Each Cpmp.12hr, 1 EACH PO BID 04/10/16 Levothyroxine Sodium (LEVOTHYROXINE SODIUM) 50 Mcg Tablet, 50 MCG PO DAILY, TABLET 04/10/16 Past Medical History Medical History: hypertension, thyroid disease Surgical History: no surgical history Social History Smoking: non-smoker Alcohol Use: none Drug Use: none Review of Systems Constitutional: no symptoms reported Respiratory: no symptoms reported Cardiovascular: no symptoms reported Gastrointestinal: no symptoms reported Genitourinary: no symptoms reported Skin: see HPI All Other Systems: Reviewed and Negative Physical Exam General Appearance: No Apparent Distress, WD/WN Head: Lacerations (posterior scalp about 8cm in a C shape with a skin flap) Ears, Nose, Mouth, Throat: Hearing Grossly Normal, No Evidence of ENT Injury, No Dental Injury Neck: Normal Alignment, Nexus criteria neg, Normal Inspection, Tenderness Cardiovascular/Respiratory: Regular Rate, Rhythm, No M/R/G, Normal Peripheral Pulses, No JVD, Normal Breath Sounds, No Respiratory Distress Gastrointestinal: Normal Bowel Sounds, No Organomegaly, No Pulsatile Mass, Non Tender, Soft Back: Normal Inspection, No CVA Tenderness, No Vertebral Tenderness Extremities: No Evidence of Injury, Normal Range of Motion, Non-Tender, No Pedal Edema Neurologic/Psychiatric: cone sewer II-XII NML as Tested, No Motor/Sensory Deficits, Alert, Normal Mood/Affect, Oriented x 3 Skin: Normal Color [place] Coma Score Best Eye Response: (4) Open Spontaneously Best Verbal Response: (5) Oriented Best Motor Response: (6) Obeys Commands ED LACERATION WOUND REPAIR # of Wounds/Lacerations Presen: 1 Wound Location & Length (Requi: head Wound Length (cm): 8 Wound cleaned: betadine Anesthesia: Lidocaine w/ Epi Volume Anesthetic (ccs): 20 Wound's Depth, Shape: flap, irregular Irrigated w/ Saline (ccs): 1000 Wound Repaired With: hiram Suture Style: interupted Sterile Dressing Applied?: Yes Results/Orders Results/Orders Laboratory Tests Test 11/18/17 09:16 White Blood Count 10.5 10^3/uL (4.5-11.0) Red Blood Count 4.01 10^6/uL (4.00-5.20) Hemoglobin 11.2 g/dL (12.0-15.0) Hematocrit 34.8 % (36.0-46.0) Mean Corpuscular Volume 86.8 fL (78-100) Mean Corpuscular Hemoglobin 27.9 pg (26-34) Mean Corpuscular Hemoglobin Concent 32.2 g/dL (33-37) Red Cell Distribution Width 13.9 % (11.5-14.5) Platelet Count 289 10^3/uL (150-400) Mean Platelet Volume 10.1 fL (7.8-11.0) Neutrophils (%) (Auto) 68.8 % (41.0-85.0) Lymphocytes (%) (Auto) 17.1 % (24.0-44.0) Monocytes (%) (Auto) 10.8 % (5.0-12.0) Neutrophils # (Auto) 7.2 10^3/uL (1.8-7.7) Lymphocytes # (Auto) 1.8 10^3/uL (1.0-4.8) Monocytes # (Auto) 1.1 10^3/uL (0.3-0.8) Absolute Immature Granulocyte (auto 0.02 10^3 u/L (0-2) Eosinophils % 2.6 % (0.0-5.0) Basophils % 0.5 % (0.0-0.2) Basophils # 0.1 10^3/uL (0.0-0.1) Eosinophil Count 0.3 10^3/uL (0.0-0.2) Prothrombin Time 9.9 SEC (9.8-11.9) Prothrombin Time INR (Non-Therap) 1.0 Activated Partial Thromboplast Time 25.0 SEC (24.67-30.72) Sodium Level 138 mmol/L (132-145) Potassium Level 4.0 mmol/L (3.6-5.2) Chloride Level 102.0 mmol/L (96-109) Carbon Dioxide Level 25.3 mmol/L (20.0-32) Anion Gap 14.7 Blood Urea Nitrogen 15 mg/dL (7-18) Creatinine 1.32 mg/dL (0.59-1.40) Estimated GFR () 45.9 (>/=60) BUN/Creatinine Ratio 11.0 Glucose Level 103 mg/dL (70-110) Calcium Level 9.2 mg/dL (8.4-10.5) Total Bilirubin 0.5 mg/dL (0.2-1.0) Aspartate Amino Transf (AST/SGOT) 13 U/L (0-35) Alanine Aminotransferase (ALT/SGPT) 12 U/L (12-78) Alkaline Phosphatase 57 U/L (50-136) Total Creatine Kinase 51 U/L (26-192) Troponin I < 0.02 ng/mL (0.00-0.05) Total Protein 6.5 g/dL (6.4-8.2) Albumin 3.5 g/dL (3.4-5.0) Globulin 3.0 Percent Immature Gran (Cell Imm) 0.20 % (0.00-0.50) EKG/XRAY/CT/US EKG: NSR XRAY: chest (No active disease) CT Comments: No acute intracranial abnormality and no fracture of C spine Departure Time of Disposition: 10:44 Disposition: 01 HOME, SELF-CARE Impression: Primary Impression: Laceration of head Qualified Codes: S01.01XA - Laceration without foreign body of scalp, initial encounter Additional Impression: Contusion of head Qualified Codes: S00.93XA - Contusion of unspecified part of head, initial encounter Condition: Stable Referrals: SHERMAN KEMP MD (PCP) PRIMARY CARE PROVIDER Additional Instructions: Tylenol Keflex Remove hiram in 10 days at your PCP or ED F/U with your PCP in 3-4 days Duration or Time Spent with Pa: 90 mins LEXI LAGUNAS MD Nov 18, 2017 09:36
--- NOTE | 2017-11-18 09:38 | NUR ---
CT PT BACK FROM CT
[2017-11-18] MEDS: TYLENOL PO STA ×2 (09:40→10:40)
[2017-11-18] MEDS: ANCEF IM STA ×2 (09:40→10:40)
[2017-11-18 09:49] LABS: ALANINE AMINOTRANSFERASE(ML) 12 U/L (12-78); ALKALINE PHOSPHATASE 57 U/L (50-136); ASPARTATE AMINO TRANSFERASE 13 U/L (0-35); CALCIUM 9.2 mg/dL (8.4-10.5); CARBON DIOXIDE 25.3 mmol/L (20.0-32); GLUCOSE 103 mg/dL (70-110)
--- NOTE | 2017-11-18 09:52 | DIREP ---
PROCEDURE:CHEST 1 VIEW COMPARISON:[facility], CR, XRAY CHEST 2 VWS, 11/11/2017, 11:23 AM. [facility], CR, XRAY CHEST SINGLE VW, 11/09/2017, 08:09 PM. INDICATIONS:Fall FINDINGS: LUNGS/PLEURA:No significant pulmonary parenchymal abnormalities. No effusions. VASCULATURE:Normal. Unremarkable pulmonary vasculature. CARDIAC:Normal. No cardiac silhouette abnormality or cardiomegaly. MEDIASTINUM:Calcified atherosclerosis. BONES:No visible displaced rib fracture. Nondisplaced rib fractures are not excluded. Recommend correlation with clinical and physical findings. OTHER:Negative. CONCLUSION:No acute cardiopulmonary findings. Dictated by: Dean Pulido M.D. on 11/18/2017 at 09:50 AM
--- NOTE | 2017-11-18 09:55 | DIREP ---
PROCEDURE:CT HEAD OR BRAIN W/O CONTRAST COMPARISON:[facility], CT, CT HEAD BRAIN W/O CONTRAST, 11/09/2017, 08:26 PM. INDICATIONS:Pain from falling TECHNIQUE:CT images were created without intravenous contrast. FINDINGS: VENTRICLES:There is prominence again seen of the ventricles and sulci. CEREBRUM:A remote lacunar infarct is seen in the right basal ganglia. Remote infarcts are again seen in the left frontal and left parietal lobes. Decreased attenuation is seen in the periventricular white matter bilaterally. CEREBELLUM:A small remote infarct is again seen in the right side of the cerebellum. BRAINSTEM:Negative. BASAL CISTERNS:Negative. SKULL:Normal. SINUSES:Subtle soft tissues changes are seen overlying the right superior calvarium near the apex, difficult to visualize on axial only images. OTHER:None CONCLUSION: 1. 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 No acute intracranial hemorrhage or mass effect. 2. There is probable soft tissue changes overlying the right paracentral superior calvarium near the apex, difficult to visualize on axial only images. Correlate with physical exam. Dictated by: Samm Pelaez MD on 11/18/2017 at 09:51 AM
[2017-11-18 10:00] VITALS: BP 159/63
--- NOTE | 2017-11-18 10:04 | DIREP ---
PROCEDURE: CT SPINE CERVICAL W/0 COMPARISON:None. INDICATIONS:Pain from falling FINDINGS: ALIGNMENT:The cervical spine is in a state of extreme flexion, as seen on the sagittal images. this makes evaluation rather difficult. 3 mm anterolisthesis of C4 on C5. 1 mm anterolisthesis of C5 on C6. VERTEBRAE:The occipital condyles are intact. No fracture of the occipital condyles is seen no fracture of the odontoid is identified. Degenerative narrowing of the intervertebral disc space with ventral osteophyte formation at C5-6 and at C6-C7. On the sagittal and axial images, no obvious evidence for acute fracture of the vertebral bodies identified. No facet subluxation is seen. No fracture of the lamina or the pedicles is seen. PARASPINAL AREA:No precervical hematoma is identified. Extensive calcifications of the vertebral artery is noted. Carotid artery calcifications noted. OTHER:No additional findings. CERVICAL DISC LEVELS Evaluation of the intervertebral foramina is slightly compromised because of marked flexion of the cervical spine identified. C2-C3:No foraminal or central stenosis. C3-C4:Mild narrowing of intervertebral foramina bilaterally C4-C5:Mild narrowing of intervertebral foramina bilaterally C5-C6:Narrowing of intervertebral foramina bilaterally C6-C7:Normal. C7-T1:Poor evaluation of the intervertebral foramina due to flexion of the cervical spine. CONCLUSION:Technically a very suboptimal study because of the extreme state of flexion of the cervical spine. No fracture of the odontoid is seen. No fracture of the occipital condyles is seen. No definite evidence for facet subluxation is seen. On the soft tissue windows no evidence for epidural hematoma or acute disc herniation is seen, considering the suboptimal nature of this examination. Poor evaluation of the intervertebral foramina due to extreme state of flexion of the cervical spine. Dictated by: Maxx Littlejohn MD on 11/18/2017 at 09:50 AM
--- NOTE | 2017-11-18 10:07 | NUR ---
WOUND DOCTOR BEBO TO ROOM CLEANED WOUND WITH APPROX 300CC OF STERILE WATER, 22 JAY[address] PLACED, PATIENT TOLERATED WELL.
[2017-11-18] MEDS ORDERED: TRIPLE ANTIBIOTIC OINTMENT TP ONE (10:22)
[2017-11-18] MEDS ORDERED: TYLENOL ONE (10:29)
[2017-11-18 10:30] VITALS: BP 148/71
[2017-11-18] MEDS ORDERED: ANCEF ONE (10:30)
[2017-11-18] MEDS ORDERED: WATER 20 ML ONE (10:30)
--- NOTE | 2017-11-18 10:32 | NUR ---
DRESSING NEOSPORIN,TELFA AND COBAN APPLIED TO WOUND, PATIENT TOLERATED WELL. AWAITING DISCHARGE BACK TO [facility].
[2017-11-18 11:00] VITALS: BP 137/69
--- NOTE | 2017-11-18 11:00 | NUR ---
DISCHARGE PATIENT DISCHARGE VIA W/C WITH DAUGHTER TO POV, NO CHANGE FROM INITIAL ASSESSMENT, PATIENT REMAINS AWAKE ALERT ORIENTED X2. NO DISTRESS NOTED.
[2017-11-18 11:01] VITALS: BP 137/69
--- NOTE | 2017-11-18 11:31 | PCM.EKG ---
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
== END 2017-11-18 11:00 | disposition home or self-care (01) ==
LOC: ER 08:49 → EDBD 08:49 → ER 11:00
DX: S01.01XA Laceration without foreign body of scalp, initial encounter (principal); I10 Essential (primary) hypertension; E07.9 Disorder of thyroid, unspecified; Z88.2 Allergy status to sulfonamides; Z79.82 Long term (current) use of aspirin; W19.XXXA Unspecified fall, initial encounter; Y93.89 Activity, other specified; Y92.098 Other place in other non-institutional residence as the place of occurrence of the external cause; Y99.8 Other external cause status
CPT/HCPCS: 12004; 36415; 70450; 71045; 72125; 80053; 82550; 84484; 85025; 85610; 85730; 93005; 96372; 99285; J0690; J3490; A4216